=== PATIENT | male | born 1930 | race Caucasian/White ===

== ENCOUNTER 2016-09-02 18:48 | Inpatient (IN) | payer MEDICARE, BC, OTHER ==
--- NOTE | ~2016-09-02 | CO ---
Unit #: [id number] #: [id number] Patient: KELLI HADDAD [id number] [address] [place], [place] [address] [id number] MR#: [id number] NAME: KELLI HADDAD ROOM: [facility] Age: 85 Sex: M Admission Date: 09/02/2016 : 1930 Attending Physician: Merle Guaman M.D. Primary Care Physician: Neftali Pro M.D. Consultation Date: 09/04/2016 CONSULTATION REPORT REASON FOR CONSULTATION CHF. HISTORY OF PRESENT ILLNESS This is a patient from a half-way, who is unable to answer questions at this time. The majority of this information was obtained from chart review and nursing staff. This is an 85-year-old male sent from a half-way with altered mental status changes. He has a prior history of hypertension, hyperlipidemia, anemia, coronary artery disease, status post CABG x3, and mitral valve annuloplasty in 2001. He also has a history of ischemic cardiomyopathy with chronic systolic congestive heart failure with his last EF 15% to 20% in 2008 and valvular heart disease with [id number] tricuspid regurgitation, mitral regurgitation, and mild aortic stenosis with RVSP 40 to 50 mmHg per echo in 06/2008. In addition, he has a history of sick sinus syndrome, status post permanent pacemaker with Medtronic in 08/2003 and paroxysmal AFib, on chronic anticoagulation with Xarelto, and CVA in 2006. He presented to the ER with decreased responsiveness, elevated white blood cell count, temperature 101, and low blood pressure. In addition, his potassium was elevated at 5.7. He was transferred to the ICU on a Levophed drip. CT of the chest showed bilateral pleural effusions, right greater than left and bibasilar atelectasis. We were asked to see him to evaluate him for CHF. PAST MEDICAL HISTORY 1. Coronary artery disease, status post CABG x3 with STACK to diagonal, saphenous vein graft to LAD, and saphenous vein graft to posterolateral branch, and mitral valve annuloplasty in 09/2001. 2. Sick sinus syndrome, status post permanent pacemaker (Medtronic) in 08/2003. 3. Ischemic cardiomyopathy with chronic systolic congestive heart failure with EF 15% to 20% per 2009 echo. 4. Valvular heart disease with [id number] TR and mitral regurgitation, mild , and RVSP 40 to 50 per echo in 06/2008. 5. Paroxysmal AFib, on chronic anticoagulation with Xarelto. 6. 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 7. Hypertension. 8. Hyperlipidemia. 9. Anemia. 10. Reformed tobacco abuse. Unit #: [id number] #: [id number] Patient: KELLI HADDAD 11. Seizure disorder. 12. senior care resident. 13. Abnormal adenosine Cardiolite in 2008. PAST SURGICAL HISTORY 1. CABG x3 with mitral valve annuloplasty in 2001. 2. Permanent pacemaker with Medtronic in 08/2003. SOCIAL HISTORY The patient resides in a half-way. He is a reformed tobacco user. No alcohol or illicit drug use reported. FAMILY HISTORY Noncontributory. ALLERGIES No known drug allergies. HOME MEDICATIONS Aldactone 12.5 mg p.o. daily, aspirin 81 mg p.o. daily, potassium chloride 20 mEq p.o. daily, Lasix 20 mg p.o. daily, fluorometholone 1 drop to both eyes daily, Cortisporin ointment 15 g topical daily, Keppra 750 mg p.o. b.i.d., Flomax 0.4 mg p.o. at bedtime, Senexon-S tablet 2 tabs p.o. b.i.d., Coreg 3.125 mg p.o. b.i.d., Remeron 7.5 mg p.o. at bedtime, MiraLAX 17 g p.o. daily, Xarelto 15 mg p.o. every evening, ferrous sulfate 1 tab p.o. b.i.d., vitamin B12 1000 mcg p.o. daily, and probiotic 250 mg p.o. b.i.d. REVIEW OF SYSTEMS Unable to fully obtain because the patient is nonverbal. He does, however, shake his head yes or no when I ask questions regarding pain. He denies chest pain, tightness, or discomfort. In addition, he denies shortness of breath. PHYSICAL EXAMINATION VITAL SIGNS: Temperature 97.9, heart rate 72, respiratory rate 26, blood pressure 112/41, height 65 inches, and weight 59.5 kg. GENERAL: This is a frail, elderly, 85-year-old male resting in bed, in no acute respiratory distress. NEUROLOGIC: He opens his eyes briefly and falls back to sleep. He does follow commands with some right-sided weakness. NECK: Trachea is midline. No thyromegaly or lymphadenopathy. HEART: S1 and S2. Regular rate and rhythm. No murmurs, rubs, or clicks. LUNGS: Rales in bases. Nonlabored respirations. ABDOMEN: Soft, nontender, and nondistended. EXTREMITIES: Trace pedal edema. SKIN: Warm and dry. DIAGNOSTIC STUDIES LABORATORY RESULTS: Sodium 147, potassium 4.8, chloride 116, BUN 39, creatinine 1, and glucose 130. Hemoglobin 9.4, hematocrit 31, white blood cell count 14.4, and platelets 253. BNP 1457. Urine culture; negative, greater than 100,000 growing. Blood cultures have no growth after 24 hours. IMAGING STUDIES: Chest x-ray shows left lower lobe infiltrate versus atelectasis with discoid atelectasis in the right base, possibly pulmonary edema. CT of the chest shows moderately large right pleural effusion, Unit #: [id number] #: [id number] Patient: KELLI HADDAD small left pleural effusion, and extensive atelectasis in both bases. CARDIOVASCULAR STUDIES: EKG shows ventricular paced rhythm at 70 beats per minute. IMPRESSION 1. Acute respiratory failure, hypercarbic. 2. Sepsis. 3. Urinary tract infection. 4. Acute on chronic systolic congestive heart failure. 5. Coronary artery disease, status post coronary artery bypass grafting x3 and mitral valve annuloplasty in 2001. 6. History of paroxysmal atrial fibrillation, on chronic anticoagulation with Xarelto. 7. Sick sinus syndrome, status post permanent pacemaker. 8. History of cerebrovascular accident in 2006. 9. Anemia. 10. Hyperkalemia, improved. PLAN 1. Echocardiogram. 2. Strict I's and O's. 3. Daily weights. 4. Diurese, Lasix 20 mg IV b.i.d. 5. BMP and CBC in a.m. 6. No RAIMUNDO, ARB, or Aldactone due to elevated potassium. We will continue to follow BMP. 7. Continue Levophed drip and wean as tolerated. Restart beta-monse when BP improves. Thank you for asking us to this patient. We appreciate the consult. Dictated by... Mitzi High APRN for Nikhil Moore/irving TD: 09/05/2016 10:48 JOB #: [id number] CONSULTATION REPORT Page 1 of 1 X X CONSULTATION REPORT
--- NOTE | ~2016-09-02 | A ---
[facility] Nutrition Therapy DATE: 09/12/16 Patient: KELLI HADDAD Physician: DELFINA Address: [facility] Room/Bed: [address] [place] [address], Zip: [place] [address] Admit Date: 09/02/16 Date of : [birth year] Height: 5 5 Weight: 139 63.1 NUTRITIONAL ASSESSMENT: REASON: LOS NUTRITION ASSESSMENT 85 yo male admitted for sepsis, UTI, AMS PMH: Dysphagia, CVA, aphasic, CHF, CAD, CABG, s/p pacemaker placement, HLD, HTN, seizure disorder, Afib, anemia Anthropometrics: Ht: 5'11" Wt: 63.1 kg BMI: 19.4 IBW: 78.2 kg, 81% IBW Labs: Cl- 94 Meds: Furosemide, protonix, NaCl I/O & Bowel function: 980/651, last BM 09/11 Skin Integrity: Blanchable redness to coccyx Intact abrasion to right conrad hematoma bottom lip/ LFA Edema: none noted Estimated Nutrition Needs: Increased due to low body weight Diet: Mechanical soft diet with NTL Assessment: Chart reviewed, events noted. 85 yo male admitted for sepsis, UTI, AMS. Pt requires feeding assistance, and is ordered the above diet per LUMBER PULLER recommendations. RN reports that the pt consumed ~50% of his lunch today, and was NPO this morning for EGD. EGD revealed gastric erosions, hiatal hernia and esophageal ring. Pt will require video LUMBER PULLER evaluation per MD note. RN reports that the pt seems to like finger foods and sweeter items on tray such as pudding and vegetables. RD will order Ensure pudding supplement. Dx: Suboptimal nutritional intake RT dysphagia, advanced age AEB ~50% intake reported by RN, pt is 81% of his IBW. Intervention: 1. Continue diet per LUMBER PULLER 2. Ensure pudding TID Monitoring, Evaluation and Goals: 1. Oral intake; tolerate >50% of meals and supplements 2. Weight; prevent weight loss, promote gradual weight gain [facility] Nutrition Therapy DATE: 09/12/16 Patient: KELLI HADDAD Physician: DELFINA Address: [facility] Room/Bed: [address] [place] [address], Zip: [place] [address] Admit Date: 09/02/16 Date of : [birth year] Height: 5 5 Weight: 139 63.1 3. GI; promote regular GI function 4. Skin; prevent breakdown Recommendations: 1. Continue to advance diet per LUMBER PULLER recommendations. No further dietary restrictions recommended at this time. 2. Ensure pudding TID with meals for supplemental nutrition. 3. Appreciate staff encouraging and assiting with nutritional intake at each meal. Pt is at mild-moderate nutritional risk. RD will follow up per protocol. Respectfully, MAC KOHLER RD, LD [facility] cc: client file
--- NOTE | ~2016-09-02 | HP ---
Unit #: [id number] #: [id number] Patient: KELLI HADDAD [id number] [address] [address] [id number] I MR#: [id number] NAME: KELLI HADDAD. ROOM: 68266 Age: 85 Sex: M Admission Date: 09/02/2016 : 1930 Attending Physician: Merle Guaman M.D. Primary Care Physician: Neftali Pro M.D. HISTORY AND PHYSICAL CHIEF COMPLAINT Altered mental status and unresponsive. HISTORY OF PRESENT ILLNESS Mr. Haddad was brought from the [facility] for unresponsiveness. The patient was not able to provide any history. He is being evaluated in the emergency room, bed 6. I tried to call the patient's family as the patient got anxious, but no one is available at this time. The patient's temperature is 101. White blood cell count is elevated to 19. The patient seems to be in sepsis. PAST MEDICAL HISTORY From old medical records, 1. History of systolic congestive heart failure with ejection fraction of 15%-20%. 2. History of coronary artery disease, status post coronary artery bypass grafting. 3. History of pacemaker placement. 4. Atrial fibrillation. 5. Anticoagulation therapy with Xarelto. 6. History of CVA in the past. 7. Seizure disorder. 8. History of CVA in 2006. 9. half-way resident. PAST SURGICAL HISTORY 1. History of pacemaker placement. 2. History of coronary artery bypass grafting. SOCIAL HISTORY The patient lives in the [facility]. No history of smoking, alcohol or drug abuse at this time, but he is a former smoker. FAMILY HISTORY Noncontributory per medical records. ALLERGIES No known drug allergies. HOME MEDICATIONS Being compiled at this time. REVIEW OF SYSTEMS Not obtainable. Unit #: [id number] #: [id number] Patient: KELLI HADDAD PHYSICAL EXAMINATION GENERAL: The patient is being evaluated in bed 6 in the emergency room. VITALS: Temperature is 101.3, pulse 72, respiratory rate 18, blood pressure 121/45, oxygen saturation is 95%. HEENT: Head is normocephalic. The patient is unresponsive. CHEST: Decreased air entry bilaterally. Rales are present in the bases. HEART: S1 and S ABDOMEN: Soft. EXTREMITIES: Negative edema. Pulses are palpable. NEUROLOGIC: The patient is unresponsive. DIAGNOSTIC STUDIES LABORATORY: Available so far, white blood cell count 19.5, hemoglobin 10.8, hematocrit 34.7, platelets 272. AFB shows pH 7.26, pCO2 75.6, pO2 125, oxygen saturation 96.4% on 2 liters. The rest of the blood workup and investigations are still pending. ASSESSMENT The patient is being admitted to the ICU with diagnoses of 1. Toxic metabolic encephalopathy. 2. Sepsis. 3. Urinary tract infection. 4. Acute hypercarbic respiratory failure. 5. Possible pneumonia. 6. Seizure disorder. 7. History of congestive heart failure and coronary artery disease with ejection fraction of 15%-20%. PLAN The patient is being admitted to the ICU. BiPAP has been started. Workup including CMP, blood cultures, urine cultures and chest x-ray is being done. BMP was done. Lactic acid has been ordered. Dr. Encinas will be consulted. Antibiotic with Zosyn 3.375 g q.6 h. has been started. The patient will be given a dose of tobramycin and vancomycin times one. IV Keppra 50 mg q.12 h. has been started. The patient will be n.p.o. until further orders. Home medications will be reviewed. Please refer to chart for further orders. Please note the patient's code status is DNR. Dictated by Nikhil Jara TD: 09/03/2016 06:31 JOB #: [id number] Unit #: [id number] #: [id number] Patient: KELLI HADDAD HISTORY AND PHYSICAL Page 1 of 1 X Merle Guaman MD HISTORY AND PHYSICAL
--- NOTE | ~2016-09-02 | CO ---
Unit #: [id number] #: [id number] Patient: KELLI HADDAD [id number] [address] [place], [place] [address] [id number] I MR#: [id number] NAME: KELLI HADDAD. ROOM: [facility] Age: 85 Sex: M Admission Date: 09/02/2016 : 1930 Attending Physician: Merle Guaman M.D. Primary Care Physician: Neftali Pro M.D. CONSULTATION REPORT REASON FOR CONSULTATION Critical care management. CHIEF COMPLAINT Altered mental status, unresponsiveness. The patient presented to the emergency room with a complaint of unresponsiveness and was found to have a urinary tract infection and started on Levophed. I am seeing the patient at the bedside. Currently awake, alert, follows minimal commands. REVIEW OF SYSTEMS Unobtainable because patient's poor cognition. PAST MEDICAL HISTORY 1. Congestive heart failure. 2. Coronary artery disease. 3. Pacemaker placement. 4. Atrial fibrillation. 5. Stroke. 6. Seizure disorder. 7. History of CVA. 8. [facility] resident. PAST SURGICAL HISTORY 1. Pacemaker placement. 2. Coronary artery disease. SOCIAL HISTORY Nonsmoker. No alcohol, no drug abuse. PHYSICAL EXAMINATION VITAL SIGNS: Temperature 101, pulse 70, respirations 15, blood pressure 120/70. NEUROLOGICAL: Awake, follows minimal commands. CVS: S1+ S2. RESPIRATIONS: Bilateral air entry, bilateral mild rhonchi. GI: Nontender, soft. Bowel sounds positive. EXTREMITIES: No edema. SKIN: No rashes, no ulcers. LYMPHATIC: No lymphadenopathy. ASSESSMENT AND PLAN 1. Acute hypercapnic respiratory failure. Unit #: [id number] #: [id number] Patient: KELLI HADDAD 2. Acute exacerbation of congestive heart failure. 3. Shock. 4. Urinary tract infection. 5. Sepsis. 6. Congestive heart failure. Plan is to admit the patient. Continue pressors, IV antibiotics, bronchodilators. GI and DVT prophylaxis. The patient is a DNR. Discontinue BiPAP. Repeat blood gas. Please see orders for detailed plans. Thank you very much for this consultation. Prognosis is extremely poor. Dictated by... Nancy Encinas M.D. Fredy TD: 09/04/2016 06:46 JOB #: [id number] CONSULTATION REPORT Page 1 of 1 X Nancy Encinas MD CONSULTATION REPORT
--- NOTE | ~2016-09-02 | CO ---
Unit #: [id number] #: [id number] Patient: KELLI HADDAD [id number] [address] [place], [place] [address] [id number] I MR#: [id number] NAME: KELLI HADDAD. ROOM: [facility] Age: 85 Sex: M Admission Date: 09/02/2016 : 1930 Attending Physician: Mrele Guaman M.D. Primary Care Physician: Neftali Pro M.D. Consultation Date: 09/04/2016 CONSULTATION REPORT CHIEF COMPLAINT Split penis. HISTORY OF PRESENT ILLNESS The patient in the ICU, skilled nursing resident. We were consulted, because of initially catheter placement. 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 His long-term catheter use has bivalve the penis and with initial visit and evaluation, his catheter was removed. I gave orders to have a coude catheter placed, it was placed without difficulty. He is having urine leak around the catheter consistent with bladder spasms. The patient is aphasic. PAST MEDICAL HISTORY Congestive heart failure, coronary artery disease, pacemaker placement, atrial fibrillation, CVA in the past, seizure disorder, skilled nursing resident. He has had bypass surgery. SOCIAL HISTORY He lives in a skilled nursing. No history of smoking. FAMILY HISTORY Noncontributory per the records. ALLERGIES No known drug allergies. MEDICATIONS At the skilled nursing include Aldactone, aspirin, K-Dur, Lasix, Keppra, Flomax, Colace, Coreg, Remeron, MiraLax, Xarelto, iron, vitamin B12, and probiotic. PHYSICAL EXAMINATION VITAL SIGNS: He is afebrile. Vital signs are stable. GENERAL: He is alert, in no acute distress. ABDOMEN: Soft. No rebound. No guarding. : No palpable masses in the scrotum. Marin catheter in place. Urine is clear. He does have a traumatic hypospadias, but there is no active bleeding. DIAGNOSTIC STUDIES LABORATORY RESULTS: Creatinine 1.0. White count 14.4. Urinalysis; 3+ leukocytes, this is a clean-catch specimen, 3+ blood, 4+ bacteria likely contaminant from his normal indwelling catheter. The patient was voiding and incontinent of urine. Apparently, urine culture is pending. 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 Urine culture is pending. Can leave the catheter in place and change it as previous. I will order B and O suppositories for his bladder spasms. Thank you for the referral. Dictated by... Keith Raman M.D. KELLY/irving TD: 09/05/2016 05:40 JOB #: [id number] CONSULTATION REPORT Page 1 of 1 X Ketih Raman MD X CONSULTATION REPORT
--- NOTE | ~2016-09-02 | OR ---
Unit #: [id number] #: [id number] Patient: KELLI HADDAD [id number] [address] [address] [id number] I MR#: [id number] NAME: KELLI HADDAD ROOM: [facility] Date of Procedure: 09/12/2016 Admission Date: 09/02/2016 Surgeon: Mickey Rodríguez M.D. : 1930 Attending Physician: Merle Guaman M.D. Primary Care Physician: Neftali Pro M.D. OPERATIVE REPORT PROCEDURE PERFORMED Esophagogastroduodenoscopy with biopsy. INDICATIONS FOR PROCEDURE The patient with anemia of acute blood loss, also with dysphagia, undergoing evaluation with upper endoscopy. MEDICATIONS Monitored anesthesia. POSTOPERATIVE FINDINGS 1. Esophageal ring, nonobstructing acquired. 2. Hiatal hernia. 3. Diffuse gastritis. Multiple gastric erosions. No active bleeding. 4. Normal duodenum and distal duodenum. PLAN Continue PPI therapy. Watch H and H. DESCRIPTION OF PROCEDURE The patient was explained of the procedure, risks, and benefits along with risks and benefits of anesthesia. He was brought to the endoscopy room. Propofol anesthesia was given. Bite block was placed. The scope was passed down the mouth into the esophagus, stomach, duodenum, and distal duodenum. Findings as described. Biopsies taken. Gently, I pulled the scope out of the patient's mouth. He tolerated it well. Dictated by... Nikhil Cr/irving TD: 09/12/2016 13:21 JOB #: [id number] Unit #: [id number] #: [id number] Patient: KELLI HADDAD OPERATIVE REPORT Page 1 of 1 X Mickey Rodríguez MD X PROCEDURE OPERATIVE NOTE
--- NOTE | ~2016-09-02 | CR72 ---
[facility] A Service of [facility] RADIOLOGY TEXT RESULTS PATIENT: KELLI HADDAD LOCATION: [facility] [id number] : [birth year] UNIT #: [id number] AGE: [address]: Merle Guaman MD SEX: M ORDER DR: [id number] [facility] [address]. [place], [place] [address] [id number] I MR#: [id number] Acc #: [id number] NAME: KELLI HADDAD. : 1930 SEX: M STUDY DATE/TIME: 09/02/2016 19:23 UNIT: [facility] ROOM: 04951 STUDY DESCRIPTION: CR Chest Single View Portable Attending Physician: Merle Guaman M.D. Ordering Physician: Sebastian Turcois M.D. Primary Care Physician: Neftali Pro M.D. MEDICAL IMAGING REPORT This report is preliminary unless electronic signature is present EXAM Portable chest, 09/02/2016. HISTORY Shortness of breath beginning today. FINDINGS The heart is enlarged but stable compared with 09/29/2015, status post median sternotomy and valvular replacement. Cardiac pacemaker is unchanged. Infiltrate or atelectasis left lower lobe and discoid atelectasis right base. Interstitial infiltrates may reflect mild pulmonary edema. No pneumothorax. Dictated by... Arsalan Bryant M.D. THIS IS AN ELECTRONICALLY VERIFIED REPORT Arsalan Bryant M.D. at 09/03/2016 2:15 PM ROSETTE/bela TD: 09/03/2016 03:34 JOB #: [id number] MEDICAL IMAGING REPORT Page 1 of 1 COPY
--- NOTE | ~2016-09-02 | DS ---
Unit #: [id number] #: [id number] Patient: KELLI HADDAD [id number] [address] [place], [place] [address] [id number] I MR#: [id number] NAME: KELLI HADDAD ROOM: 326 Age: 85 Sex: M Admission Date: 09/02/2016 : 1930 Discharge Date: 09/12/2016 Attending Physician: Merle Guaman M.D. Primary Care Physician: Neftali Pro M.D. DISCHARGE SUMMARY FINAL DIAGNOSES 1. Acute hypoxic respiratory failure, which is improved. 2. Sepsis, resolved. 3. Urinary tract infection. Please note the patient just completed a course of antibiotics. 4. Coronary artery disease. 5. Paroxysmal atrial fibrillation. 6. Anemia, status post EGD, which shows esophageal ring, nonobstructive, which is acquired. Hiatal hernia, gastritis, gastric erosion. Biopsy has been done. Normal duodenum. 7. Altered mental status on admission, which is resolved. 8. Systolic congestive heart failure, with ejection fraction of 15%-20%. 9. History of coronary artery disease, status post coronary artery bypass grafting. 10. History of pacemaker placement. 11. History of CVA in the past. 12. Seizure disorder. 13. halfway resident. DISCHARGE MEDICATIONS 1. Vitamin B12 1000 p.o. daily. 2. Potassium 20 mEq daily. 3. Protonix 40 mg daily. 4. Aspirin 81 mg daily. 5. [place]-Time 1 tablet b.i.d. 6. Probiotic 250 mg b.i.d. 7. Lasix 20 mg daily. 8. MiraLAX 17 g daily. 9. Flomax 0.4 mg at bedtime. 10. Tylenol q.4 h. p.r.n. 11. Xarelto 15 mg daily. 12. Keppra 750 mg b.i.d. 13. Remeron 7.5 mg at nighttime. 14. Coreg 3.125 mg b.i.d. CONSULTANTS Dr. Nancy Encinas from pulmonary services. Dr. Keith Raman from renal services. Dr. Jones from cardiology services. DIAGNOSTIC DATA LABORATORY: On discharge, sodium 137, potassium 4.8, chloride 94, BUN 19, creatinine 1.1, calcium 8.5. PT/INR 12.5 and 1.2. CBC shows white blood cell count 11.9, hemoglobin 9.2, hematocrit 29.2, platelet count 147. Unit #: [id number] #: [id number] Patient: KELLI HADDAD Hemoccult in stool is negative. Vitamin B12 is 1,225, ferritin 454, TSH 1.71. Blood cultures are negative. BNP on admission was more than 1000. IMAGING: There were multiple chest x-rays done during hospitalization and CT scan of the chest was done on 09/03/2016, that showed moderately large right pleural effusion and small left pleural effusion. Extensive atelectasis in the posterior right lower lobe and moderate atelectasis in the medial left lower lobe. There are additional patchy multifocal interstitial infiltrates. There are stable mild mediastinal adenopathy, likely reactive or inflammatory and likely benign given its long-term stability. HOSPITAL COURSE Mr. Haddad is an 85-year-old male who was admitted to the hospital on 09/02/2016 with altered mental status and unresponsiveness. The patient was admitted to the telemetry unit with toxic metabolic encephalopathy, sepsis and urinary tract infection and acute respiratory failure. Dr. Nancy Encinas was consulted. The patient was diagnosed with congestive heart failure, acute on chronic systolic congestive heart failure. The patient was treated with IV diuretics. Dr. Jones was consulted. The patient is doing very well at this time and is able to tolerate diet. He is able to communicate. The patient will be [facility] to the [facility] in stable condition. The patient also was found to have urinary tract infection. Urine culture was positive for more than 100,000 mixed growth. The patient had some anemia. Dr. Rodríguez was consulted. The patient had EGD done. Findings are as above. We do need to follow up on pathology report. Please note, per Dr. Rodríguez the patient is not a good candidate for colonoscopy. PHYSICAL EXAMINATION VITALS: On discharge, blood pressure 101/46, respiratory rate 18, pulse 75, temperature 98.7, oxygen saturation 98%. CHEST: Decreased at the bases. HEART: S1 and S2 positive. Regular. ABDOMEN: Soft. EXTREMITIES: Negative edema. DISCHARGE INSTRUCTIONS 1. The patient is being discharged to the rehab facility in stable condition. 2. Medication as per medication reconciliation. 3. Dr. Pro to follow the patient at the [facility]. 4. CBC and BMP to be done in one week. 5. Physical therapy and occupational therapy at the [facility]. 6. Follow up on pathology results from gastric mucosa. Dictated by.Nikhil Farmer TD: 09/12/2016 14:33 Unit #: [id number] #: [id number] Patient: KELLI HADDAD JOB #: [id number] DISCHARGE SUMMARY Page 1 of 1 X Merle Guaman MD X DISCHARGE SUMMARY
--- NOTE | ~2016-09-02 | CR71 ---
[facility] A Service of [facility] & [facility] RADIOLOGY TEXT RESULTS PATIENT: KELLI HADDAD LOCATION: [place] [address] : 31 UNIT #: [id number] AGE: [address]: Merle Guaman MD SEX: M ORDER DR: [id number] [facility] [address] [facility]. [place], [place] [address] [id number] I MR#: [id number] Acc #: [id number] NAME: KELLI HADDAD. : 1930 SEX: M STUDY DATE/TIME: 09/05/2016 5:47 UNIT: [facility] ROOM: [facility] STUDY DESCRIPTION: CR Chest Single View Attending Physician: Merle Guaman M.D. Ordering Physician: Nancy Encinas M.D. Primary Care Physician: Neftali Pro M.D. MEDICAL IMAGING REPORT This report is preliminary unless electronic signature is present EXAM Portable chest HISTORY CHF, sepsis, UTI x3 days, respiratory failure. COMPARISON 09/02/2016 FINDINGS Portable view of the chest demonstrates interval placement of a right neck-approach central line near the cavoatrial junction. Pacemaker noted. Patient is post median sternotomy and valve replacement. Increasing opacity over both lungs right greater than left may represent worsening interstitial and alveolar edema may reflect underlying CHF. Probable small right pleural effusion. Stable cardiomegaly. No pneumothorax. Dictated by... Master Christianson M.D. THIS IS AN ELECTRONICALLY VERIFIED REPORT Master Christianson M.D. at 09/06/2016 12:28 PM TIANNA/khloe TD: 09/05/2016 21:33 JOB #: [id number] MEDICAL IMAGING REPORT Page 1 of 1 COPY
--- NOTE | ~2016-09-02 | CT57 ---
[facility] A Service of [facility] & [facility] RADIOLOGY TEXT RESULTS PATIENT: KELLI HADDAD LOCATION: [address] : [birth year] UNIT #: [id number] AGE: [address]: Merle Guaman MD SEX: M ORDER DR: [id number] [facility] [address] [facility]. [place], [place] [address] [id number] I MR#: [id number] Acc #: [id number] NAME: KELLI HADDAD. : 1930 SEX: M STUDY DATE/TIME: 09/03/2016 16:53 UNIT: [facility] ROOM: [facility] STUDY DESCRIPTION: CT Chest Wo Cont Attending Physician: Merle Guaman M.D. Ordering Physician: Nancy Encinas M.D. Primary Care Physician: Neftali Pro M.D. MEDICAL IMAGING REPORT This report is preliminary unless electronic signature is present EXAM CT chest without contrast. HISTORY Fever and shortness of air since yesterday. TECHNIQUE This CT exam was performed with one or more of the following radiation dose reduction techniques: automatic exposure control, adjustment of mA and/or kV according to patient size, and iterative reconstruction. FINDINGS CT chest without contrast demonstrates a moderate-sized right pleural effusion and small left pleural effusion. Moderately dense atelectasis or infiltrate in the posterior right lower lobe and in the medial left lower lobe. Additional subpleural atelectasis in the posterior upper lobes. Additional patchy interstitial infiltrates in the mid and upper lungs, could be secondary to edema or interstitial pneumonia.. Mild right paratracheal adenopathy measuring 1.3 cm, aortopulmonic window adenopathy measuring 1.2 cm, and subcarinal adenopathy measuring 1.2 cm. These are similar findings to mediastinal nodes on CT 07/24/2006, and could be reactive or inflammatory. Aberrant right subclavian artery is incidentally noted. IMPRESSION 1. Moderately large right pleural effusion and small left pleural effusion. 2. Extensive atelectasis in the posterior right lower lobe and moderate atelectasis in the medial left lower lobe. There are additional patchy multifocal interstitial infiltrates in the mid and upper lungs which could be due to pneumonitis or edema. 3. Stable mild mediastinal adenopathy, likely reactive or inflammatory, and likely benign given its long-term stability. [facility]. [facility] A Service of [facility] & [facility] RADIOLOGY TEXT RESULTS PATIENT: KELLI HADDAD LOCATION: [address] : 31 UNIT #: [id number] AGE: [address]: Merle Guaman MD SEX: M ORDER DR: 4. Incidental aberrant right subclavian artery. Dictated by... Jay Carcamo M.D. THIS IS AN ELECTRONICALLY VERIFIED REPORT Jay Carcamo M.D. at 09/04/2016 5:38 PM CESAR/bela TD: 09/04/2016 09:24 JOB #: [id number] MEDICAL IMAGING REPORT Page 1 of 1 COPY
--- NOTE | ~2016-09-02 | EKG ---
PATIENT: KELLI HADDAD UNIT #: [id number] Ventricular Rate: 71 BPM Atrial Rate: 71 BPM P-R Interval: 196 ms QRS Duration: 92 ms Q-T Interval: 390 ms QTC Calculation(Bezet): 423 ms P [place]: 37 degrees Calculated R [place]: -4 degrees Calculated T [place]: -72 degrees Diagnosis Line: Sinus rhythm with sinus arrhythmia with frequent Diagnosis Line: ventricular-paced complexes Diagnosis Line: Low voltage QRS Diagnosis Line: ST and T wave abnormality, consider inferior Diagnosis Line: ischemia Diagnosis Line: ST and T wave abnormality, consider anterolateral Diagnosis Line: ischemia Diagnosis Line: Abnormal ECG Diagnosis Line: When compared with ECG of 29-SEP-2015 02:06, Diagnosis Line: No significant change was found Diagnosis Line: Confirmed by TORITO DESOUZA MD ([id number]) on Diagnosis Line: 09/04/2016 11:06:22 AM INTERPRETING MD: LYLY WHITE
--- NOTE | ~2016-09-02 | CR72 ---
[facility] A Service of [facility] & [facility] RADIOLOGY TEXT RESULTS PATIENT: KELLI HADDAD LOCATION: [facility] 326- : 31 UNIT #: [id number] AGE: [address]: Merle Guaman MD SEX: M ORDER DR: [id number] [facility] [address] [facility] [address] [place], [place] [address] [id number] I MR#: [id number] Acc #: [id number] NAME: KELLI HADDAD : 1930 SEX: M STUDY DATE/TIME: 09/08/2016 11:32 UNIT: [address] ROOM: [facility] STUDY DESCRIPTION: CR Chest Single View Portable Attending Physician: Merle Guaman M.D. Ordering Physician: Portia Ying M.D. Primary Care Physician: Neftali Pro M.D. MEDICAL IMAGING REPORT This report is preliminary unless electronic signature is present EXAM Chest portable, 09/08/2016, 1132 hours. CLINICAL HISTORY 85-year-old man with history of shortness of air and heart failure since 09/02/2016. Followup edema. COMPARISON 09/05/2016 FINDINGS Portable upright chest demonstrates median sternotomy change with valve ring present. Stable pacer device. Heart size at the upper limits of normal with stable tortuous atherosclerotic aorta. Interval removal of right IJ catheter. There is no pneumothorax. There is pulmonary venous distension and bilateral interstitial change which is similar to prior exam. There is blunting of the right costophrenic sulcus consistent with small effusion felt likely unchanged. IMPRESSION 1. Interval removal of right IJ catheter with no pneumothorax. 2. Median sternotomy change with stable pacer device and heart size at the upper limits of normal. 3. Stable right greater than left parenchymal changes suggesting edema. There is blunting of the right costophrenic sulcus consistent with small effusion which is likely unchanged. Dictated by... Claire Nye M.D. THIS IS AN ELECTRONICALLY VERIFIED REPORT Claire Nye M.D. at 09/08/2016 5:18 PM [facility] A Service of [facility] & [facility] RADIOLOGY TEXT RESULTS PATIENT: KELLI HADDAD LOCATION: [place] [address] : 31 UNIT #: [id number] AGE: [address]: Merle Guaman MD SEX: M ORDER DR: Vasile TD: 09/08/2016 15:12 JOB #: [id number] MEDICAL IMAGING REPORT Page 1 of 1 COPY
--- NOTE | ~2016-09-02 | OR ---
Unit #: [id number] #: [id number] Patient: KELLI HADDAD [id number] [address] [address] [id number] I MR#: [id number] NAME: KELLI HADDAD ROOM: [facility] Date of Procedure: Admission Date: 09/02/2016 Surgeon: Nancy Encinas M.D. : 1930 Attending Physician: Merle Guaman M.D. Primary Care Physician: Neftali Pro M.D. PROCEDURE OPERATIVE NOTE PROCEDURE Right internal jugular intravenous catheter placement. INDICATION Shock. DETAILS OF THE PROCEDURE Under all aseptic measures, the right side of the neck was prepped with ChloraPrep and, with all sterile technique with ultrasound guidance, a triple lumen central venous catheter was inserted in the right internal jugular vein. The guidewire was then removed in toto. All three ports flushed and working nice. Secured with suture in place. No complications happened. Modified Seldinger technique was applied. The patient tolerated the procedure very well. Post procedure chest x-ray was ordered. Dictated by... Nikhil Busch/gia TD: 09/04/2016 06:55 JOB #: [id number] PROCEDURE OPERATIVE NOTE Page 1 of 1 X Nancy Encinas MD X PROCEDURE OPERATIVE NOTE
[~2016-09-02 18:48] MED LIST: ALDACTONE PO; ASPIRIN PO; ASPIRIN81 M2 PO; B-121000 MC1 PO; COLACE PO; COMBIVENT U/D3 M3 INH; COREG PO; COREG3.125 MG PO; COUMADIN PO; ENEMEEZ283 MG/EN1 PR; FAST RELIEF LAX10 MG PR; FERRO-TIME325 MG PO; FERROUS SULFATE PO; FLOMAX0.4 M1 PO; FML LIQUIFILM OU; HYDROCODONE-APA1 T33 PO; IMDUR PO; K-DUR20 ME1 PO; KCL PO; KEPPRA750 MG PO; LANOXIN PO; LASIX PO; LASIX20 MG PO; LIPITOR PO; LISINOPRIL PO; LORTAB 10/500 T1 TAB PO; LORTAB 7.5-5001 TAB PO; MILK OF MAGNESIA PO; MIRALAX17 GM PO; MIRALAX255 GM PO; MULTI-VITAMIN1 EAC1 PO; MULTIVITAMINS W1 TAB PO; NITROGYLCERIN SUBLINGUAL; NITROSTAT0.4 MG SL; OS-CAL 500500 MG PO; PROTONIX PO; REMEDY CALAZIM113 GM TOP; REMERON PO; SENEXON-S TABL1 EACH PO; TOPROL XL PO; TYLENOL325 M1 PO; UROXATRAL10 MG PO; VICODIN 5/500 T1 TAB PO; VITAMIN C500 M1 PO; XARELTO15 MG PO; XARELTO20 MG PO; ZOCOR PO
[2016-09-02 19:22] LABS: ARTERIAL BLD GAS O2 SATURATION 96.4 % (90.0-100.0); ARTERIAL BLOOD GAS HCO3 34.2 mmol/L; ARTERIAL BLOOD GAS MET HB 1.1 %sat (0.0-2.0); ARTERIAL BLOOD GAS pH 7.264 (7.350-7.450)
[2016-09-02 19:23] LABS: ARTERIAL BLOOD GAS PCO2 75.6 mmHg (35.0-45.0)
[2016-09-02 19:24] LABS: ARTERIAL BLOOD GAS ALLEN TEST NORMAL; ARTERIAL BLOOD GAS ART SITE RIGHT RADIAL; ARTERIAL BLOOD GAS DELIVERY NASAL CANNULA; ARTERIAL DRAW? YES
[2016-09-02 19:37] LABS: BASOPHIL% 0.2 % (0-2.5); HEMATOCRIT 34.7 % (38.0-50.0); HEMOGLOBIN 10.8 gm/dL (13.0-16.0); LYMPHOCYTE# 0.6 X10e3 (1.0-3.5); MEAN CELL VOLUME 95.5 FL (83-96); MEAN CORPUSCULAR HEMOGLOBIN 29.7 PG (28-34); MEAN CORPUSCULAR HGB CONC 31.1 g/dL (30-36); MEAN PLATELET VOLUME 8.9 FL (6.5-11.5); MONOCYTE# 1.4 X10e3 (0-1.0); MONOCYTE% 7.2 % (3.0-12.0); NEUTROPHIL# 17.5 X10e3 (1.5-7.1); NEUTROPHIL% 89.6 % (40-75); PLATELET COUNT 272 X10e3 (140-420); RED BLOOD COUNT 3.64 X10e (3.90-5.60); RED CELL DISTRIBUTION WIDTH 14.6 % (11.0-15.5); WHITE BLOOD COUNT 19.5 X10e3 (4.0-10.5)
[2016-09-02 19:38] LABS: DIFF IND YES
[2016-09-02 19:49] LABS: INR 1.2; PARTIAL THROMBOPLASTIN TIME 26.4 SECONDS (23.5-31.3)
[2016-09-02 20:03] LABS: POC - CKMB <1.0 ng/mL (0.0-7.9); POC - TROPONIN <0.05 ng/mL (<=0.05)
[2016-09-02 20:04] LABS: ALBUMIN SERUM 2.7 g/dL (3.5-5.0); ALKALINE PHOSPHATASE 50 U/L (32-92); ALT (SGPT) 11 U/L (10-40); AST (SGOT) 17 U/L (10-42); BILIRUBIN,TOTAL 0.4 mg/dL (0.2-2.0); BLOOD UREA NITROGEN 47 mg/dL (9-23); BUN/CREATININE RATIO 39.16; CALCIUM SERUM 9.1 mg/dL (8.4-10.2); CARBON DIOXIDE 33 mmol/L (22-31); CHLORIDE 110 mmol/L (100-111); CREATININE SERUM 1.2 mg/dL (0.6-1.4); GLOM FILT RATE Estimated 55.2 mL/min (>60); GLUCOSE FASTING 162 mg/dL (70-110); MAGNESIUM 2.5 mg/dL (1.6-3.0); PHOSPHOROUS 3.6 mg/dL (2.5-4.6); PROTEIN TOTAL SERUM 7.6 g/dL (6.0-8.3); SODIUM 145 mmol/L (135-145)
[2016-09-02 20:05] LABS: BILIRUBIN, DIRECT <0.1 mg/dL (0.0-0.2); BILIRUBIN,INDIRECT 0.3 mg/dL (0.0-0.9); POTASSIUM 5.7 mmol/L (3.5-5.1)
[2016-09-02 20:12] LABS: PLATELET ESTIMATE NORMAL (NORMAL)
[2016-09-02 20:13] LABS: ANISOCYTOSIS SL; POIKILOCYTOSIS SL
[2016-09-02 20:34] LABS: ARTERIAL BLD GAS O2 SATURATION 95.3 % (90.0-100.0); ARTERIAL BLOOD GAS CARBOXY HB 0.8 %sat (0.0-9.0); ARTERIAL BLOOD GAS HCO3 30.4 mmol/L; ARTERIAL BLOOD GAS MET HB 1.1 %sat (0.0-2.0); ARTERIAL BLOOD GAS pH 7.224 (7.350-7.450)
[2016-09-02 20:37] LABS: ARTERIAL BLOOD GAS ART SITE RIGHT BRACHIAL; ARTERIAL BLOOD GAS PCO2 73.6 mmHg (35.0-45.0); ARTERIAL DRAW? YES
[2016-09-02 20:46] LABS: URINE SOURCE CLEAN CATCH
[2016-09-02 20:50] LABS: URINE APPEARANCE TURBID; URINE BILIRUBIN NEG (NEG); URINE BLOOD 3+ (NEG); URINE COLOR YELLOW; URINE GLUCOSE NEG (NEG); URINE KETONE NEG (NEG); URINE LEUKOCYTE ESTERASE 3+ (NEG); URINE NITRATE NEG (NEG); URINE PH 6.5 (5-8); URINE PROTEIN 1+ (NEG); URINE SPECIFIC GRAVITY 1.017 (1.003-1.035)
[2016-09-02 20:52] LABS: URBCS1 AUWI 100-200 /[HPF] (0-2); URINE BACTERIA AUWI 4+ (NEGATIVE); URINE SQUAMOUS EPITHELIAL CELL NONE SEEN /[HPF]; UWBCS1 AUWI INNUM (0-5)
[2016-09-02 21:53] LABS: ARTERIAL BLD GAS O2 SATURATION 96.5 % (90.0-100.0); ARTERIAL BLOOD GAS CARBOXY HB 0.8 %sat (0.0-9.0); ARTERIAL BLOOD GAS HCO3 28.8 mmol/L; ARTERIAL BLOOD GAS MET HB 0.9 %sat (0.0-2.0)
[2016-09-02 21:55] LABS: ARTERIAL BLOOD GAS ART SITE RIGHT BRACHIAL; ARTERIAL BLOOD GAS DELIVERY BIPAP 18/4; ARTERIAL BLOOD GAS PCO2 75.3 mmHg (35.0-45.0); ARTERIAL BLOOD GAS pH 7.191 (7.350-7.450); ARTERIAL DRAW? YES
[2016-09-03] MEDS ORDERED: PROBIOTIC250 MG PO (03:36)
[2016-09-03] MEDS ORDERED: CORTISPORIN OIN15 GM TOP (03:40)
[2016-09-03 16:27] LABS: ARTERIAL BLD GAS O2 SATURATION 97.2 % (90.0-100.0); ARTERIAL BLOOD GAS CARBOXY HB 0.7 %sat (0.0-9.0); ARTERIAL BLOOD GAS HCO3 29.1 mmol/L; ARTERIAL BLOOD GAS MET HB 0.9 %sat (0.0-2.0); ARTERIAL BLOOD GAS pH 7.252 (7.350-7.450)
[2016-09-03 16:28] LABS: ARTERIAL BLOOD GAS ALLEN TEST NORMAL; ARTERIAL BLOOD GAS ART SITE LEFT RADIAL; ARTERIAL BLOOD GAS DELIVERY VENTURI MASK; ARTERIAL BLOOD GAS PCO2 66.2 mmHg (35.0-45.0); ARTERIAL DRAW? YES
[2016-09-03 16:37] LABS: HEMATOCRIT 34.3 % (38.0-50.0); HEMOGLOBIN 10.6 gm/dL (13.0-16.0); MEAN CELL VOLUME 97.1 FL (83-96); MEAN CORPUSCULAR HEMOGLOBIN 29.9 PG (28-34); MEAN CORPUSCULAR HGB CONC 30.8 g/dL (30-36); RED BLOOD COUNT 3.53 X10e (3.90-5.60); RED CELL DISTRIBUTION WIDTH 14.8 % (11.0-15.5); WHITE BLOOD COUNT 12.1 X10e3 (4.0-10.5)
[2016-09-03 17:04] LABS: CALCIUM SERUM 8.9 mg/dL (8.4-10.2); GLOM FILT RATE Estimated 68.8 mL/min (>60)
[2016-09-03 17:06] LABS: POTASSIUM 5.4 mmol/L (3.5-5.1)
[2016-09-04 04:47] LABS: ARTERIAL BLD GAS O2 SATURATION 97.6 % (90.0-100.0); ARTERIAL BLOOD GAS CARBOXY HB 0.7 %sat (0.0-9.0); ARTERIAL BLOOD GAS HCO3 28.2 mmol/L; ARTERIAL BLOOD GAS MET HB 1.1 %sat (0.0-2.0); ARTERIAL BLOOD GAS pH 7.275 (7.350-7.450)
[2016-09-04 04:50] LABS: ARTERIAL BLOOD GAS ALLEN TEST NORMAL; ARTERIAL BLOOD GAS ART SITE RIGHT RADIAL; ARTERIAL BLOOD GAS PCO2 60.6 mmHg (35.0-45.0); ARTERIAL DRAW? YES
[2016-09-04 04:51] LABS: ARTERIAL BLOOD GAS DELIVERY VENTURI MASK
[2016-09-04 06:03] LABS: HEMOGLOBIN 9.4 gm/dL (13.0-16.0); MEAN CELL VOLUME 97.5 FL (83-96); MEAN CORPUSCULAR HEMOGLOBIN 29.6 PG (28-34); MEAN CORPUSCULAR HGB CONC 30.4 g/dL (30-36); RED BLOOD COUNT 3.18 X10e (3.90-5.60); RED CELL DISTRIBUTION WIDTH 14.9 % (11.0-15.5); WHITE BLOOD COUNT 14.4 X10e3 (4.0-10.5)
[2016-09-04 06:30] LABS: ALBUMIN SERUM 2.4 g/dL (3.5-5.0); BILIRUBIN,TOTAL 0.6 mg/dL (0.2-2.0); CALCIUM SERUM 8.7 mg/dL (8.4-10.2); GLOM FILT RATE Estimated 68.8 mL/min (>60); POTASSIUM 4.8 mmol/L (3.5-5.1); PROTEIN TOTAL SERUM 6.5 g/dL (6.0-8.3)
[2016-09-05 04:07] LABS: BASOPHIL% 0.1 % (0-2.5); EOSINOPHIL% 0.1 % (0.0-7.0); HEMATOCRIT 29.3 % (38.0-50.0); HEMOGLOBIN 9.1 gm/dL (13.0-16.0); LYMPHOCYTE# 0.8 X10e3 (1.0-3.5); LYMPHOCYTE% 6.4 % (17.0-45.0); MEAN CELL VOLUME 96.4 FL (83-96); MEAN CORPUSCULAR HEMOGLOBIN 29.9 PG (28-34); MEAN PLATELET VOLUME 9.2 FL (6.5-11.5); MONOCYTE# 1.1 X10e3 (0-1.0); MONOCYTE% 9.3 % (3.0-12.0); NEUTROPHIL# 10.1 X10e3 (1.5-7.1); NEUTROPHIL% 84.1 % (40-75); PLATELET COUNT 206 X10e3 (140-420); RED BLOOD COUNT 3.04 X10e (3.90-5.60); RED CELL DISTRIBUTION WIDTH 14.4 % (11.0-15.5)
[2016-09-05 04:08] LABS: DIFF IND NO
[2016-09-05 04:21] LABS: ARTERIAL BLD GAS O2 SATURATION 96.4 % (90.0-100.0); ARTERIAL BLOOD GAS CARBOXY HB 0.9 %sat (0.0-9.0); ARTERIAL BLOOD GAS HCO3 33.7 mmol/L; ARTERIAL BLOOD GAS MET HB 1.3 %sat (0.0-2.0); ARTERIAL BLOOD GAS pH 7.297 (7.350-7.450)
[2016-09-05 04:23] LABS: ARTERIAL BLOOD GAS ALLEN TEST NORMAL; ARTERIAL BLOOD GAS ART SITE RIGHT RADIAL; ARTERIAL BLOOD GAS DELIVERY NASAL CANNULA; ARTERIAL DRAW? YES
[2016-09-05 04:31] LABS: ALBUMIN SERUM 2.5 g/dL (3.5-5.0); BILIRUBIN,TOTAL 0.4 mg/dL (0.2-2.0); BUN/CREATININE RATIO 38.88; CALCIUM SERUM 8.9 mg/dL (8.4-10.2); CREATININE SERUM 0.9 mg/dL (0.6-1.4); GLOM FILT RATE Estimated 78.2 mL/min (>60); POTASSIUM 3.6 mmol/L (3.5-5.1); PROTEIN TOTAL SERUM 6.6 g/dL (6.0-8.3)
[2016-09-06 04:02] LABS: ARTERIAL BLD GAS O2 SATURATION 95.5 % (90.0-100.0); ARTERIAL BLOOD GAS CARBOXY HB 1.1 %sat (0.0-9.0); ARTERIAL BLOOD GAS MET HB 0.9 %sat (0.0-2.0); ARTERIAL BLOOD GAS pH 7.417 (7.350-7.450)
[2016-09-06 04:05] LABS: ARTERIAL BLOOD GAS ALLEN TEST NORMAL; ARTERIAL BLOOD GAS PCO2 57.4 mmHg (35.0-45.0); ARTERIAL DRAW? YES
[2016-09-06 04:06] LABS: ARTERIAL BLOOD GAS ART SITE LEFT RADIAL; ARTERIAL BLOOD GAS DELIVERY NASAL CANNULA
[2016-09-06 07:00] LABS: ALBUMIN SERUM 2.3 g/dL (3.5-5.0); BILIRUBIN,TOTAL 1.1 mg/dL (0.2-2.0); BUN/CREATININE RATIO 31.11; CALCIUM SERUM 8.7 mg/dL (8.4-10.2); CREATININE SERUM 0.9 mg/dL (0.6-1.4); GLOM FILT RATE Estimated 78.2 mL/min (>60); POTASSIUM 3.4 mmol/L (3.5-5.1)
[2016-09-07 05:37] LABS: BASOPHIL% 0.1 % (0-2.5); EOSINOPHIL% 0.4 % (0.0-7.0); HEMATOCRIT 28.1 % (38.0-50.0); HEMOGLOBIN 9.2 gm/dL (13.0-16.0); LYMPHOCYTE# 0.5 X10e3 (1.0-3.5); LYMPHOCYTE% 6.7 % (17.0-45.0); MEAN CELL VOLUME 92.5 FL (83-96); MEAN CORPUSCULAR HEMOGLOBIN 30.3 PG (28-34); MEAN CORPUSCULAR HGB CONC 32.8 g/dL (30-36); MEAN PLATELET VOLUME 8.9 FL (6.5-11.5); MONOCYTE# 0.8 X10e3 (0-1.0); MONOCYTE% 10.4 % (3.0-12.0); NEUTROPHIL# 6.7 X10e3 (1.5-7.1); NEUTROPHIL% 82.4 % (40-75); PLATELET COUNT 154 X10e3 (140-420); RED BLOOD COUNT 3.04 X10e (3.90-5.60); WHITE BLOOD COUNT 8.1 X10e3 (4.0-10.5)
[2016-09-07 05:57] LABS: DIFF IND NO
[2016-09-07 06:21] LABS: BUN/CREATININE RATIO 27.77; CALCIUM SERUM 8.3 mg/dL (8.4-10.2); CREATININE SERUM 0.9 mg/dL (0.6-1.4); GLOM FILT RATE Estimated 78.2 mL/min (>60); POTASSIUM 3.1 mmol/L (3.5-5.1)
[2016-09-08 06:45] LABS: BASOPHIL% 0.2 % (0-2.5); EOSINOPHIL# 0.1 X10e3 (0-0.7); EOSINOPHIL% 0.8 % (0.0-7.0); HEMATOCRIT 27.1 % (38.0-50.0); HEMOGLOBIN 8.6 gm/dL (13.0-16.0); LYMPHOCYTE# 0.9 X10e3 (1.0-3.5); LYMPHOCYTE% 11.1 % (17.0-45.0); MEAN CELL VOLUME 93.7 FL (83-96); MEAN CORPUSCULAR HEMOGLOBIN 29.9 PG (28-34); MEAN CORPUSCULAR HGB CONC 31.9 g/dL (30-36); MEAN PLATELET VOLUME 9.3 FL (6.5-11.5); MONOCYTE# 0.7 X10e3 (0-1.0); MONOCYTE% 9.3 % (3.0-12.0); NEUTROPHIL% 78.6 % (40-75); PLATELET COUNT 138 X10e3 (140-420); RED BLOOD COUNT 2.89 X10e (3.90-5.60); RED CELL DISTRIBUTION WIDTH 14.7 % (11.0-15.5); WHITE BLOOD COUNT 7.7 X10e3 (4.0-10.5)
[2016-09-08 06:47] LABS: DIFF IND NO
[2016-09-08 07:11] LABS: BUN/CREATININE RATIO 26.66; CALCIUM SERUM 8.6 mg/dL (8.4-10.2); CREATININE SERUM 0.9 mg/dL (0.6-1.4); GLOM FILT RATE Estimated 78.2 mL/min (>60); MAGNESIUM 1.7 mg/dL (1.6-3.0); POTASSIUM 3.2 mmol/L (3.5-5.1)
[2016-09-09 05:36] LABS: HEMATOCRIT 26.6 % (38.0-50.0); HEMOGLOBIN 8.6 gm/dL (13.0-16.0); MEAN CORPUSCULAR HGB CONC 32.2 g/dL (30-36); MEAN PLATELET VOLUME 9.6 FL (6.5-11.5); RED BLOOD COUNT 2.86 X10e (3.90-5.60); RED CELL DISTRIBUTION WIDTH 14.4 % (11.0-15.5)
[2016-09-09 06:10] LABS: BUN/CREATININE RATIO 27.14; CALCIUM SERUM 8.5 mg/dL (8.4-10.2); CREATININE SERUM 0.7 mg/dL (0.6-1.4); GLOM FILT RATE Estimated 86.7 mL/min (>60); MAGNESIUM 1.7 mg/dL (1.6-3.0); POTASSIUM 3.5 mmol/L (3.5-5.1)
[2016-09-10 06:39] LABS: BUN/CREATININE RATIO 22.22; CALCIUM SERUM 8.5 mg/dL (8.4-10.2); CREATININE SERUM 0.9 mg/dL (0.6-1.4); GLOM FILT RATE Estimated 78.2 mL/min (>60); POTASSIUM 3.5 mmol/L (3.5-5.1)
[2016-09-10 06:40] LABS: HEMOGLOBIN 7.4 gm/dL (13.0-16.0); MEAN CELL VOLUME 93.3 FL (83-96); MEAN CORPUSCULAR HEMOGLOBIN 29.9 PG (28-34); MEAN CORPUSCULAR HGB CONC 32.1 g/dL (30-36); MEAN PLATELET VOLUME 9.5 FL (6.5-11.5); RED BLOOD COUNT 2.46 X10e (3.90-5.60); RED CELL DISTRIBUTION WIDTH 14.5 % (11.0-15.5); WHITE BLOOD COUNT 6.3 X10e3 (4.0-10.5)
[2016-09-10 15:56] LABS: INR 1.2; PROTHROMBIN TIME (PATIENT) 13.5 SECONDS (10.0-11.7)
[2016-09-10 16:20] LABS: FERRITIN 454 ng/mL (24-336)
[2016-09-11 05:31] LABS: HEMATOCRIT 25.4 % (38.0-50.0); HEMOGLOBIN 8.4 gm/dL (13.0-16.0); MEAN CELL VOLUME 91.7 FL (83-96); MEAN CORPUSCULAR HEMOGLOBIN 30.4 PG (28-34); MEAN CORPUSCULAR HGB CONC 33.1 g/dL (30-36); MEAN PLATELET VOLUME 9.6 FL (6.5-11.5); RED BLOOD COUNT 2.77 X10e (3.90-5.60); RED CELL DISTRIBUTION WIDTH 14.6 % (11.0-15.5)
[2016-09-11 05:38] LABS: WHITE BLOOD COUNT 10.9 X10e3 (4.0-10.5)
[2016-09-11 06:23] LABS: CALCIUM SERUM 7.8 mg/dL (8.4-10.2); GLOM FILT RATE Estimated 68.8 mL/min (>60); POTASSIUM 3.6 mmol/L (3.5-5.1)
[2016-09-12 05:56] LABS: HEMATOCRIT 29.2 % (38.0-50.0); HEMOGLOBIN 9.2 gm/dL (13.0-16.0); MEAN CELL VOLUME 92.2 FL (83-96); MEAN CORPUSCULAR HEMOGLOBIN 29.2 PG (28-34); MEAN CORPUSCULAR HGB CONC 31.6 g/dL (30-36); MEAN PLATELET VOLUME 9.6 FL (6.5-11.5); RED BLOOD COUNT 3.17 X10e (3.90-5.60); RED CELL DISTRIBUTION WIDTH 14.4 % (11.0-15.5); WHITE BLOOD COUNT 11.9 X10e3 (4.0-10.5)
[2016-09-12 06:24] LABS: INR 1.2; PROTHROMBIN TIME (PATIENT) 12.5 SECONDS (10.0-11.7)
[2016-09-12 06:39] LABS: BUN/CREATININE RATIO 17.27; CALCIUM SERUM 8.5 mg/dL (8.4-10.2); CREATININE SERUM 1.1 mg/dL (0.6-1.4); GLOM FILT RATE Estimated 61.3 mL/min (>60); POTASSIUM 4.8 mmol/L (3.5-5.1)
== END 2016-09-13 01:12 | DRG 871 ==
LOC: CED 18:48 → CICCU3 19:41 → CEDOF 19:41 → CED 20:11 → CEDOF 20:11 → CICCU3 09-03 18:36 → C3A PCU 09-07 16:43
PROVIDERS: Emergency Medicine; Hospitalist; Internal Medicine; Internal Medicine Cardiovascular Disease; Internal Medicine Pulmonary Disease; Nurse Practitioner; Physician Assistant Medical
PROC: 05HM33Z Insertion of Infusion Device into Right Internal Jugular Vein, Percutaneous Approach (ICD-10-PCS; 2016-09-03)
PROC: B543ZZA Ultrasonography of Right Jugular Veins, Guidance (ICD-10-PCS; 2016-09-03)
PROC: B24BYZZ Ultrasonography of Heart with Aorta using Other Contrast (ICD-10-PCS; 2016-09-04)
PROC: 30233N1 Transfusion of Nonautologous Red Blood Cells into Peripheral Vein, Percutaneous Approach (ICD-10-PCS; 2016-09-10)
PROC: 0DB68ZX Excision of Stomach, Via Natural or Artificial Opening Endoscopic, Diagnostic (ICD-10-PCS; principal; 2016-09-12 08:15)
DX: A41.9 Sepsis, unspecified organism (principal); G92 Toxic encephalopathy; R65.21 Severe sepsis with septic shock; I50.23 Acute on chronic systolic (congestive) heart failure; I47.2 Ventricular tachycardia; J96.02 Acute respiratory failure with hypercapnia; J96.01 Acute respiratory failure with hypoxia; J18.9 Pneumonia, unspecified organism; I11.0 Hypertensive heart disease with heart failure; E87.5 Hyperkalemia; D62 Acute posthemorrhagic anemia; N39.0 Urinary tract infection, site not specified; R47.01 Aphasia; E87.0 Hyperosmolality and hypernatremia; N17.9 Acute kidney failure, unspecified; K22.2 Esophageal obstruction; Z95.1 Presence of aortocoronary bypass graft; G40.909 Epilepsy, unspecified, not intractable, without status epilepticus; I25.10 Atherosclerotic heart disease of native coronary artery without angina pectoris; Z95.0 Presence of cardiac pacemaker; Z86.73 Personal history of transient ischemic attack (TIA), and cerebral infarction without residual deficits; Z79.01 Long term (current) use of anticoagulants; I25.5 Ischemic cardiomyopathy; I48.0 Paroxysmal atrial fibrillation; I08.3 Combined rheumatic disorders of mitral, aortic and tricuspid valves; Q54.1 Hypospadias, penile; K44.9 Diaphragmatic hernia without obstruction or gangrene; K29.70 Gastritis, unspecified, without bleeding; E87.6 Hypokalemia; D69.6 Thrombocytopenia, unspecified
CPT/HCPCS: 36415; 36430; 36600; 71010; 71250; 80048; 80053; 80076; 80200; 81003; 82274; 82553; 82607; 82728; 82803; 82947; 83605; 83735; 83880; 84100; 84443; 84484; 85025; 85027; 85610; 85730; 86850; 86900; 86901; 86923; 87040; 87086; 88305; 88312; 92526; 92610; 93005; 93306; 94640; 94660; 94760; 94761; 96360; 96361; 97163; 99285; C9113; G8978-GP; G8979-GP; G8980-GP; G8996-GN; G8997-GN; J0696; J1265; J1940; J1953; J2543; J3260; J3370; J3475; J3480; J7060; P9016

== ENCOUNTER 2016-10-06 16:01 | Inpatient (IN) | payer MEDICARE, BC, OTHER ==
[~2016-10-06] VITALS: Ht 165.1 cm; Wt 60.8 kg
--- NOTE | ~2016-10-06 | EKG ---
PATIENT: KELLI HADDAD UNIT #: [id number] Ventricular Rate: 69 BPM Atrial Rate: 66 BPM QRS Duration: 190 ms Q-T Interval: 470 ms QTC Calculation(Bezet): 503 ms Calculated R [place]: -77 degrees Calculated T [place]: 99 degrees Diagnosis Line: Ventricular-paced rhythm Diagnosis Line: Abnormal ECG Diagnosis Line: When compared with ECG of 02-SEP-2016 19:25, Diagnosis Line: Vent. rate has decreased BY 2 BPM Diagnosis Line: Confirmed by BING WEST MD ([id number]) on 10/07/2016 Diagnosis Line: 8:41:56 AM INTERPRETING MD: JENNA WHITE
--- NOTE | ~2016-10-06 | CO ---
Unit #: [id number] #: [id number] Patient: KELLI HADDAD [id number] [address] [address] [id number] I MR#: [id number] NAME: KELLI HADDAD. ROOM: [facility] Age: 85 Sex: M Admission Date: 10/06/2016 : 1930 Attending Physician: Merle Guaman M.D. Primary Care Physician: Neftali Pro M.D. Consultation Date: 10/08/2016 CONSULTATION REPORT REASON FOR CONSULTATION ICU management. HISTORY OF PRESENT ILLNESS This is a very pleasant 85-year-old male with a past medical history significant for coronary artery disease, hypertension, hyperlipidemia, multiple strokes, who is well known to our service from multiple previous admission, who presented to the emergency room with shortness of air. Patient is a longterm resident who was just discharged from the hospital a month ago after admission for pneumonia. Patient is unable to provide any history and all of the information was obtained from the medical record. He did report patient was transferred from the longterm due to worsening shortness of breath and hypoxia. There was no report of fever, chills, or night sweats. No noticeable cough. Patient is awake, alert and follows simple commands. PAST MEDICAL HISTORY 1. Coronary artery disease. 2. Paroxysmal atrial fibrillation. 3. Chronic anemia. 4. Systolic congestive heart failure with ejection fraction of 15% to 20%. 5. Cerebrovascular accident. 6. Seizure disorder. 7. Hypertension. 8. Hyperlipidemia. PAST SURGICAL HISTORY 1. CABG. 2. Mitral valve angioplasty. 3. Pacemaker placement. FAMILY HISTORY Noncontributory. ALLERGIES No known drug allergy. SOCIAL HISTORY Patient is a longterm resident. He is an ex-smoker. No history of alcohol or drug abuse. HOME MEDICATIONS Unit #: [id number] #: [id number] Patient: KELLI HADDAD 1. Aspirin. 2. Potassium. 3. Vitamin B12. 4. Protonix. 5. MiraLAX. 6. Lasix. 7. Ferrous sulfate. 8. Coreg. 9. Keppra. 10. Xarelto. 11. Remeron. 12. Flomax. 13. Tylenol. 14. Dulcolax. REVIEW OF SYSTEM Unable to obtain due to patient condition. PHYSICAL EXAMINATION GENERAL: The patient is in no acute distress. VITAL SIGNS: Blood pressure currently is 105/62, earlier it was in the mid 80s. HEENT: Atraumatic and normocephalic. EOMI. NECK: Supple. No JVD. No lymphadenopathy. CHEST: Decreased breath sounds bilaterally. HEART: S1 and S2. Positive systolic murmur. EXTREMITIES: Trace edema. SKIN: No rashes. [employer]: Patient is awake, alert, is confused with multiple histories of strokes in the past. He follows simple commands. DIAGNOSTIC STUDIES LABORATORY STUDIES: Creatinine 1.0, potassium 4.7, sodium 137. White blood count is 9.2, hemoglobin 9.7. IMAGING STUDIES: Chest x-ray is consistent with aspiration pneumonia versus pulmonary edema. ASSESSMENT 1. Acute hypoxic respiratory failure. 2. Acute on chronic systolic congestive heart failure with ejection fraction of 15% to 20%. 3. Extended spectrum beta-lactamase bacteremia. 4. Paroxysmal atrial fibrillation. 5. Possible aspiration pneumonia. 6. Seizure disorder. 7. Hypertension. 8. Hyperlipidemia. 9. Malnutrition. 10. Coronary artery disease. 11. Multiple ischemic stroke. PLANS 1. Patient will be monitored in ICU very closely. We will hold his Lasix at this point given his hypertension. 2. Gentle hydration as tolerated. 3. Broad spectrum antibiotics to cover for ESBL. 4. Bronchodilator and mucolytics. Unit #: [id number] #: [id number] Patient: KELLI HADDAD 5. Physical therapy. 6. PT eval. Dictated by... Galina Hickey M.D. EA/tor TD: 10/09/2016 05:32 JOB #: [id number] CONSULTATION REPORT Page 1 of 1 X GALINA DELUNA MD CONSULTATION REPORT
--- NOTE | ~2016-10-06 | CO ---
Unit #: [id number] #: [id number] Patient: KELLI HADDAD [id number] [address] [place], [place] [address] [id number] I MR#: [id number] NAME: KELLI HADDAD. ROOM: [facility] Age: 85 Sex: M Admission Date: 10/06/2016 : 1930 Attending Physician: Merle Guaman M.D. Primary Care Physician: Neftali Pro M.D. Consultation Date: 10/07/2016 CONSULTATION REPORT REASON FOR CONSULTATION Gram-negative sepsis. HISTORY OF PRESENT ILLNESS This is an 85-year-old gentleman from a longterm, who was unable to provide any history. Information was obtained through review of the chart and prolonged discussion with nursing staff. He is a longterm resident, who was admitted with what appears to be shortness of breath, and congestive heart failure. He was hypoxic on admission. The patient does have indwelling Marin catheter, but does not have any IV, central line, or a PICC line. He was treated for congestive heart failure, but then blood cultures became positive for gram-negative neelima, for which Zosyn was started and ID was consulted for further evaluation. The patient is currently stable. He is awake, but lethargic and is not communicating. He does not appear to be in any distress. He denies any dysuria, abdominal pain, headache, or cough. PAST MEDICAL HISTORY Coronary artery disease, status post CABG; atrial fibrillation; chronic anemia; congestive heart failure; pacemaker implantation; CVA; bedridden status; seizure disorder; anticoagulation therapy; hypertension; hyperlipidemia. PREVIOUS SURGERIES Pacemaker implantation, coronary artery bypass grafting. FAMILY HISTORY Negative. ALLERGIES None. SOCIAL HISTORY He is a longterm resident. No history of alcohol, drug, or tobacco abuse. HOME MEDICATIONS Aspirin, potassium, vitamin B12, Protonix, MiraLAX, Lasix, ferrous sulfate, Coreg, Keppra, Xarelto, Remeron, Flomax, Tylenol or Dulcolax. Current medications in the hospital include Zosyn, lisinopril, Flomax, Remeron, Keppra, Coreg, furosemide, bisacodyl, Tylenol, ferrous sulfate, Xarelto, MiraLAX, vitamin B12, Klor-Con, aspirin. SYSTEMIC REVIEW Unit #: [id number] #: [id number] Patient: KELLI HADDAD Unable to obtain. Chart was reviewed. Discussions were held with the nursing staff. There is no obvious sacral or pelvic decubitus. The patient has an indwelling Marin catheter. There is no cough, abdominal pain, or headache. He does not have any PICC line or central line. PHYSICAL EXAMINATION GENERAL: Reveals an elderly white male, who is awake, but lethargic, unable to communicate and does not appear to be in any distress. VITAL SIGNS: Temperature 98.7, heart rate 69, respiration 24, blood pressure 112/49. No fever was documented during this admission and no hypertension was recorded. The lowest blood pressure was 90/52 yesterday. NECK: Supple. There is no JVD. Has trace edema bilaterally. LUNGS: Clear to percussion and auscultation. HEART: Sounds are normal. There are no murmurs. ABDOMEN: Soft and nontender. Marin catheter is in place. There is no rebound or guarding. Bowel sounds normal. NEUROLOGIC: He is awake. Difficult to have him follow commands, but is able to move all 4 extremities. DIAGNOSTIC STUDIES LABORATORY RESULTS: White count is 8.2, hemoglobin 9.3, platelets 222, neutrophils 73, lymphocytes 12, monocytes 11. Sodium 139, potassium 4.3, chloride 98, CO2 of 32, glucose 159, BUN 19, creatinine 0.9. Blood culture, gram-negative rods. ID is pending. Lactic acid 1.2. Urinalysis is pending. IMAGING STUDIES: Chest x-ray shows stable cardiomegaly with small bilateral effusions, possible developing pulmonary edema. IMPRESSION Gram-negative bacteremia, source unclear. The patient does not appear septic or toxic. At this time, the source likely is urinary tract infection, possible pneumonia, endocarditis, pacemaker infection should also be excluded. RECOMMENDATION Agree with Zosyn. I will give dose of tobramycin for double coverage. In case if it is a resistant gram negative, we will check serum procalcitonin level and repeat blood cultures. Further recommendations will follow. Dictated by... Nikhil Stoner/irving TD: 10/07/2016 22:54 JOB #: [id number] Unit #: [id number] #: [id number] Patient: KELLI HADDAD CONSULTATION REPORT Page 1 of 1 X Abiel Rodriguez MD CONSULTATION REPORT
--- NOTE | ~2016-10-06 | CR72 ---
[facility] A Service of [facility] RADIOLOGY TEXT RESULTS PATIENT: KELLI HADDAD LOCATION: [facility] : 31 UNIT #: [id number] AGE: [address]: Merle Guaman MD SEX: M ORDER DR: [id number] [facility] [address] [place], [place] [address] [id number] I MR#: [id number] Acc #: [id number] NAME: KELLI HADDAD. : 1930 SEX: M STUDY DATE/TIME: 10/06/2016 17:24 UNIT: [facility] ROOM: [facility] STUDY DESCRIPTION: CR Chest Single View Portable Attending Physician: Merle Guaman M.D. Ordering Physician: Juan Jose Balbuena M.D. Primary Care Physician: Neftali Pro M.D. MEDICAL IMAGING REPORT This report is preliminary unless electronic signature is present EXAM Portable chest, 10/06/2016, at 17:24. INDICATIONS Shortness of air today. FINDINGS AP portable views of the chest compared to 09/08/2016. Cardiomegaly is stable, status post valve repair and pacer placement. Trace bilateral pleural effusions are again seen. There is some vascular congestion with mild opacity in the bases suggesting early edema. No pneumothorax is seen. IMPRESSION Stable cardiomegaly with small bilateral effusions. There is probably a developing mild pulmonary edema. Dictated by... Sebastian Tierney Jr., M.D. THIS IS AN ELECTRONICALLY VERIFIED REPORT Sebastian Tierney Jr., M.D. at 10/07/2016 4:12 PM LEATHA/estefany TD: 10/06/2016 23:18 JOB #: [id number] MEDICAL IMAGING REPORT Page 1 of 1 COPY
--- NOTE | ~2016-10-06 | HP ---
Unit #: [id number] #: [id number] Patient: KELLI HADDAD [id number] [address] [address] [id number] I MR#: [id number] NAME: KELLI HADDAD ROOM: 562 Age: 85 Sex: M Admission Date: 10/06/2016 : 1930 Attending Physician: Merle Guaman M.D. Primary Care Physician: Neftali Pro M.D. HISTORY AND PHYSICAL CHIEF COMPLAINT Shortness of breath HISTORY OF PRESENT ILLNESS Koraxc-dfuw-xpge-old male who is well-known to us from previous admissions, has history of multiple medical problems came because of the shortness of breath. The patient's pulse oximetry in jail was 88%. The patient is not able to provide any history at this time. Most of the history was taken from emergency room notes and history is being taken from the previous notes that I know him. There is no history of fever or chills. No history of chest pain. No history of cough or sputum production. PAST MEDICAL HISTORY 1. Coronary artery disease status post CABG 2. Paroxysmal atrial fibrillation 3. Chronic anemia 4. Systolic congestive heart failure with ejection fraction of 15-20% 5. Pacemaker placement 6. Cerebrovascular accident in the past 7. Seizure disorder 8. Anticoagulation therapy 9. Hypertension 10. Hyperlipidemia PAST SURGICAL HISTORY 1. Coronary artery bypass graft with mitral valve annuloplasty in 2001 2. Pacemaker placement FAMILY HISTORY Noncontributory ALLERGIES No known drug allergies SOCIAL HISTORY The patient is a jail resident. He has past history of smoking. No history of alcohol abuse or drug abuse. HOME MEDICATIONS 1. Aspirin 81 mg daily 2. Potassium 20 mEq daily 3. Vitamin B12 1000 mcg daily Unit #: [id number] #: [id number] Patient: KELLI HADDAD 4. Protonix 40 mg daily 5. MiraLax 17 grams daily 6. Lasix 20 mg daily 7. Ferrous sulfate 325 mg b.i.d. 8. Coreg 3.125 mg twice a day 9. Keppra 750 mg twice a day 10. Xarelto 50 mg daily 11. Remeron 7.5 mg at bedtime 12. Flomax 0.4 mg at bedtime 13. Tylenol 650 every 4 p.r.n. 14. Ducolax 200 mg per rectum daily if not bowel movement REVIEW OF SYSTEMS Is not obtainable. PHYSICAL EXAMINATION GENERAL: The patient is being evaluated in room 562. The patient is resting, not really providing much history. VITAL SIGNS: Blood pressure is 111/52, respiratory rate 24, pulse rate 69, temperature 97.7, oxygen saturation is 99%. No respiratory distress. HEENT: Head is normocephalic. NECK: Supple. CHEST: Decreased air entry. Basal rales are heard. CARDIOVASCULAR: S1, S2 is positive. Pacemaker. ABDOMEN: Soft. EXTREMITIES: Negative edema. DIAGNOSTIC STUDIES LABORATORY: WBC 8, hemoglobin 10.3, hematocrit 31.4 and platelet count of 216,000. PT/INR is 15.3 and 1.4. Lactic acid 1.2. Sodium 138, potassium 4.6, chloride 100, BUN 18, creatinine 0.8. Liver enzymes are normal. BNP is elevated to 4494. Troponin less than 0.05. Blood cultures are positive for gram negative rods. IMAGING: Chest x-ray shows stable cardiomegaly with small bilateral effusions. Developing mild pulmonary edema. ASSESSMENT AND PLAN The patient is being admitted to telemetry unit at [facility] with a diagnosis of: 1. Acute hypoxic respiratory failure. 2. Qjlju-ni-iiftjba systolic congestive heart failure with ejection fraction of 15-20%. 3. Bacteremia, gram negative rods, both sets 4. Paroxysmal atrial fibrillation on anticoagulation therapy 5. Coronary artery disease status post coronary artery bypass graft. 6. Seizure disorder. 7. Hypertension. 8. Hyperlipidemia. Plan is admit to telemetry unit. Dr. Ying has been consulted. IV dieresis is being done. Infectious disease will be consulted. IV antibiotic is being started. Urinalysis and culture will be done. Please refer to progress note for further orders. Code status is "DO NOT RESUSCITATE." Unit #: [id number] #: [id number] Patient: KELLI HADDAD Dictated by Nikhil Jara/jarred TD: 10/07/2016 16:43 JOB #: [id number] HISTORY AND PHYSICAL Page 1 of 1 X Merle Guaman MD HISTORY AND PHYSICAL
--- NOTE | ~2016-10-06 | DS ---
Unit #: [id number] #: [id number] Patient: KELLI HADDAD [id number] [address] [address] [id number] I MR#: [id number] NAME: KELLI HADDAD ROOM: 310 Age: 85 Sex: M Admission Date: 10/11/2016 : 1930 Discharge Date: 10/13/2016 Attending Physician: Merle Guaman M.D. Primary Care Physician: Neftali Pro M.D. DISCHARGE SUMMARY FINAL DIAGNOSES 1. Acute hypoxic respiratory failure. 2. Escherichia coli bacteremia. 3. Urinary tract infection with urine culture positive for extended spectrum betalactamase production, Escherichia coli more than 100,000 colonies. 4. Acute systolic congestive heart failure with left ventricular ejection fraction of 10% to 15%. 5. Coronary artery disease with history of previous CABG. 6. Paroxysmal atrial fibrillation. 7. Pacemaker in place. 8. History of cerebrovascular accident. 9. History of seizures. 10. Anemia. 11. Chronic aspiration. DISCHARGE MEDICATIONS 1. Intravenous meropenem 500 mg q.6 hourly until 10/20/16. This is per infectious disease. 2. MiraLAX 17 g daily. 3. Bisacodyl 10 mg per rectum daily p.r.n. for no bowel movement in four days. 4. Coreg 3.125 mg p.o. b.i.d. Hold if systolic blood pressure is less than 100. 5. Protonix 40 mg daily. 6. Aspirin 81 mg daily. 7. Ferrous sulfate 325 mg b.i.d. 8. Lasix 20 mg daily. 9. Potassium 20 mEq daily. 10. Xarelto 15 mg daily. 11. Keppra 750 mg twice a day. 12. Flomax 0.4 mg q. h.s. CONSULTATION DURING HOSPITALIZATION 1. Dr. Jordan - Infectious Disease. 2. Dr. Ying - Cardiology Services. 3. Dr. Rafi Hickey - Pulmonary Services. 4. Dr. Rodríguez - Gastroenterology Services. LAB WORKUP ON DISCHARGE Sodium 133, potassium 4.0, chloride 94, BUN 14, creatinine 0.7, calcium 9.1. CBC shows WBC 7.0, hemoglobin 8.7, hematocrit 26.4 and platelet count of Unit #: [id number] #: [id number] Patient: KELLI HADDAD 229. Urine culture - ESBL E. coli more than 100,000 colony. Hemoccult in the stool positive. Blood culture - E. coli positive. Repeat one on 10/08 was no growth. BNP on admission 494. SIGNIFICANT RADIOLOGICAL STUDIES Chest x-ray on 10/06/2016 shows stable cardiomegaly with bilateral effusion, probably developing mild pulmonary edema. HOSPITAL COURSE Mr. Kelli Haddad is an 85-year-old male who was admitted with a complaint of shortness of breath. Patient's pulse ox in the custodial was 88%. Patient could not provide any history. Admitting diagnosis was acute hypoxic respiratory failure, acute on chronic systolic congestive heart failure, bacteremia with Gram-negative rods, paroxysmal atrial fibrillation. Patient was started on broad spectrum IV antibiotic. Dr. Rodriguez was consulted. Patient was started on IV Zosyn in the beginning and later on changed to IV meropenem because of ESBL production. CLINT was done by Dr. Ying which did not show any vegetation. It did show left ventricular ejection fraction of 10-15% and right ventricular systolic pressure of 55. Patient does have mild to moderately enlarged right atrial, moderately dilated right ventricle and moderate aortic stenosis is present, and moderate mitral regurgitation. The patient did develop hypotension during hospitalization and was on pressor. Patient has been off pressor. Has been started on procalcitonin. Patient is on ProAmatine at this time. Beta blockers were held in the hospital. We are going to restart it. Hold Coreg if systolic blood pressure is less than 100. Patient has end stage severe ischemic cardiomyopathy with hypotension. Patient's prognosis is poor. EXAMINATION ON DISCHARGE Blood pressure is 124/59, respiratory rate 18, pulse is 69, temperature 97.4. CHEST has decreased air entry. CVS - S1, S2 positive. ABDOMEN is soft. EXTREMITIES - slight edema is present. Cold extremities. DISCHARGE INSTRUCTIONS 1. Patient is being discharged home after PICC line placement. 2. Continue IV antibiotic until 10/20/16 as per infectious disease. 3. Oxygen to keep saturation above 94%. MEDICATION As per Med Rec. PROGNOSIS Poor. Dictated by... Merle Guaman M.D. Saira Unit #: [id number] #: [id number] Patient: KELLI HADDAD Quiana TD: 10/13/2016 10:56 JOB #: [id number] DISCHARGE SUMMARY Page 1 of 1 X Merle Guaman MD DISCHARGE SUMMARY
--- NOTE | ~2016-10-06 | XA166 ---
[facility] A Service of [facility] & [facility] RADIOLOGY TEXT RESULTS PATIENT: KELLI HADDAD LOCATION: [facility] 310- : 31 UNIT #: [id number] AGE: [address]: Merle Guaman MD SEX: M ORDER DR: [id number] [facility] [address] [facility] [place], [place] [address] [id number] I MR#: [id number] Acc #: [id number] NAME: KELLI HADDAD. : 1930 SEX: M STUDY DATE/TIME: 10/13/2016 14:57 [facility] ROOM: 310 STUDY DESCRIPTION: XA PICC Line Placement WO Port Attending Physician: Merle Guaman M.D. Ordering Physician: Merle Guaman M.D. Primary Care Physician: Neftali Pro M.D. MEDICAL IMAGING REPORT This report is preliminary unless electronic signature is present EXAM PICC placement with ultrasound and fluoroscopic guidance HISTORY Venous access needed for antibiotics. TECHNIQUE The procedure was explained to the patient including risks, benefits and complications. Informed consent was obtained and a formal time-out procedure was utilized. Full barrier sterile technique was utilized including skin prep with ChloraPrep, long drapes, gown, gloves, mask, caps and shoe covers. Sterile ultrasound probe cover and sterile ultrasound gel. Using full barrier sterile technique and following local anesthesia with 1% Xylocaine, the basilic vein was punctured above the elbow on the left with ultrasound guidance. Ultrasound was used to confirm vessel patency which was confirmed and permanent ultrasound images were recorded. An 0.018 guidewire was passed into the superior vena cava under fluoroscopic guidance. It was noted that the wire turned upwards into the upper superior vena cava rather than downwards because of pacemaker wires and narrowing of the lower SVC. This positioning was still satisfactory. A 4-Welsh single-lumen PICC was measured to 38 cm cut and deployed with the tip positioned in the upper superior vena cava. The PICC functions normally. It was secured in place with an antibiotic patch and adhesive dressing. 1 spot film was obtained with fluoroscopy time of 1.3 minutes. IMPRESSION Successful placement of a 4-Welsh single-lumen PICC via the left basilic vein above the elbow with ultrasound and fluoroscopic guidance. Dictated by... Sebastian Issa M.D. [facility] A Service of [facility] RADIOLOGY TEXT RESULTS PATIENT: KELLI HADDAD LOCATION: [facility] 310-01 : 31 UNIT #: [id number] AGE: [address]: Merle Guaman MD SEX: M ORDER DR: THIS IS AN ELECTRONICALLY VERIFIED REPORT Sebastian Issa M.D. at 10/14/2016 11:30 AM CIRA/isha TD: 10/14/2016 05:47 JOB #: [id number] MEDICAL IMAGING REPORT Page 1 of 1 COPY
--- NOTE | ~2016-10-06 | CO ---
Unit #: [id number] #: [id number] Patient: KELLI HADDAD [id number] [address] [place], [place] [address] [id number] I MR#: [id number] NAME: KELLI HADDAD. ROOM: [facility] Age: 85 Sex: M Admission Date: 10/06/2016 : 1930 Attending Physician: Merle Guaman M.D. Primary Care Physician: Neftali Pro M.D. Consultation Date: 10/07/2016 CONSULTATION REPORT REASON FOR CONSULTATION Acute hypoxic respiratory failure and acute on chronic systolic congestive heart failure. HISTORY OF PRESENT ILLNESS This is an 85-year-old white male, who is a custodial resident, who has a history in the past of having a CABG and mitral valve annuloplasty back in 2002. His last stress test was in 2008, treated medically. He has a previous history of paroxysmal atrial fibrillation, on Xarelto; previous stroke; history of seizures; hypertension; and history of anemia. He was just recently here at this facility from 09/02/2016 through 09/12/2016 with acute hypoxic respiratory failure, sepsis, UTI, and anemia. He had an EGD that showed gastric erosion/echo showed LVEF of 20% to 25% and he has a low gradient severe aortic stenosis and severe pulmonary hypertension. The patient was sent from the custodial with increased shortness of breath and in low saturation levels. It was documented 80% on room air. On interview with the patient, he is a poor historian due to his advanced age and questionable some mild dementia. He remembers feeling short of breath, but says he feeling better. He denies any chest pain or pain in his neck, bilateral jaws, shoulders, arms, or elbow. He denies any palpitations. No syncopal episodes. He reports no cough, fever, or chills. In the emergency room, the patient's blood pressure was 91/52, heart rate 70, respirations 22, temperature is 98, and O2 saturation was 95% on 2L. His initial workup; his chest x-ray did show some small bilateral effusions and mild pulmonary edema and some vascular congestion. His creatinine is 0.8, potassium 4.6, BNP 494, and lactic acid 1.4. His EKG shows V paced. The patient was given a dose of IV Lasix and was admitted for further management. Cardiology consult to assist with further management. PAST MEDICAL HISTORY 1. He is a custodial resident. 2. Hypertension. 3. Hyperlipidemia. 4. History of anemia. 5. Coronary artery disease, previous CABG back in 2001 - STACK to the diagonal, saphenous vein graft to the LAD, saphenous vein graft to the posterolateral branch and had mitral valve annuloplasty. 6. In 2008, he had a 2D echo with LVEF of 40% to 50%, sifm-ud-ekkhznmr TR, mild , and mild MR. On 09/04/2016, a 2D echo with LVEF of 20% to 25% with low gradient severe aortic stenosis, moderate mitral regurgitation, mild tricuspid regurgitation, and severe pulmonary hypertension with elevated RVSP at 90 mmHg. 7. Recent admission from 09/02/2016 through 09/12/2016 for acute hypoxic Unit #: [id number] #: [id number] Patient: KELLI HADDAD Quiana respiratory failure, sepsis, UTI, and anemia, had an EGD showed some gastric erosions. 8. Permanent pacemaker secondary to sick sinus syndrome, placed in 2003, it is [employer]. 9. Paroxysmal atrial fibrillation, on Xarelto. 10. Previous stroke. 11. History of seizures. 12. Reformed smoker. PAST SURGICAL HISTORY 1. Permanent pacemaker in 2003, it is [employer]. 2. Coronary artery bypass graft x3 in 2001 and also had mitral valve annuloplasty. 3. EGD on 09/12/2016, shows esophageal ring nonobstructing, hiatal hernia, diffuse gastritis, and multiple gastric erosions. No active bleeding. Normal duodenum and distal duodenum. HOME MEDICATIONS 1. Aspirin 81 mg p.o. daily. 2. K-Dur 20 mEq p.o. daily. 3. Vitamin B12 of 1000 mcg p.o. daily. 4. Protonix 40 mg p.o. daily. 5. MiraLAX 17 g p.o. daily. 6. Lasix 20 mg p.o. daily. 7. Ferrous sulfate 325 mg p.o. twice daily. 8. Carvedilol 3.125 mg p.o. twice daily. 9. Keppra 750 mg p.o. twice daily. 10. Xarelto 15 mg p.o. daily. 11. Mirtazapine 7.5 mg p.o. at bedtime. 12. Flomax 0.4 mg p.o. at bedtime. 13. Tylenol 650 mg every 4 hours p.r.n. 14. Dulcolax 10 mg per rectum daily p.r.n. for bowel movement for constipation. ALLERGIES No known drug allergies. SOCIAL HISTORY The patient resides in a custodial. He is a reformed tobacco user. No alcohol or illicit drug abuse. The patient may be fairly sedentary and may be wheelchair or uses a walker. FAMILY HISTORY Noncontributory. REVIEW OF SYSTEMS See details in HPI. PHYSICAL EXAMINATION GENERAL: On exam, Mr. Haddad is an 85-year-old white male. He is awake. He answers some simple questions appropriately, but has some poor memory recall. VITAL SIGNS: Currently; blood pressure is 104/51, heart rate 70, respirations 16, temperature 98.6, and O2 saturations 98% on 2L. NECK: Trachea midline. No thyromegaly or lymphadenopathy. Normal carotid upstrokes. No jugular venous distention. HEART: S1 and S2. Regular rate and rhythm. He is paced, has systolic murmur over aortic region and left sternal border. Unit #: [id number] #: [id number] Patient: KELLI HADDAD LUNGS: Diminished with bilateral crackles in bases. Fine scattered rales in bases. ABDOMEN: Soft and nontender. EXTREMITIES: Pedal pulses are palpable, very faint. No pedal edema. DIAGNOSTIC STUDIES LABORATORY RESULTS: Glucose is 114, BUN 18, creatinine 0.8, EGFR is 32.1, sodium 138, potassium 4.6, chloride 100, CO2 of 32, and calcium is 8.8. Total protein 7.6, albumin 2.7, bilirubin total 0.6, AST 17, ALT 11, and alkaline phosphatase is 64. BNP is 494. Lactic acid is 1.2. WBC 6.7, hemoglobin 10.2, hematocrit 31.7, and platelets are 208. Initial cardiac enzymes; CK-MB is 3.6 with troponin less than 0.05 and CK-MB is 2.7 with troponin less than 0.05. IMAGING STUDIES: Chest x-ray shows stable cardiomegaly with small bilateral effusions, probably mild pulmonary edema. EKG shows ventricular paced rhythm. IMPRESSION 1. Acute hypoxic respiratory failure. 2. Acute on chronic systolic congestive heart failure. Last 2D echo on 09/04/2016 showed LVEF of 20% to 25%. He has a low gradient severe aortic stenosis, moderate mitral regurgitation, mild tricuspid regurgitation, severe pulmonary hypertension with elevated RVSP at 90 mmHg. 3. Hypertension, which now his blood pressure is a little low. 4. Hyperlipidemia. 5. Anemia, which is stable. 6. Coronary artery disease with previous coronary artery bypass graft back in 2001 and also had mitral valve annuloplasty. 7. Permanent pacemaker for sick sinus syndrome. 8. Paroxysmal atrial fibrillation, on Xarelto. 9. Previous stroke. 10. History of seizures. 11. Recent admission for acute hypoxic respiratory failure, sepsis, urinary tract infection, and anemia and had an esophagogastroduodenoscopy that showed gastric erosions. 12. He is a reformed smoker. PLAN 1. We will gently diurese him with IV Lasix. Strict intake and output and daily weights. Monitor labs, especially BUN, creatinine, and electrolytes and supplement when needed. 2. The patient has a low EF of 20% to 25%, was checked early in 09/2016. We tried to put him on an RAIMUNDO inhibitor, lisinopril 2.5 mg p.o. daily, with parameters. On exam, there are no signs or symptoms of unstable angina. His cardiac enzymes are negative. His EKG does not show anything acute. 3. The patient is a DNR status. His family and the patient wants conservative medical management. 4. The patient has urine and blood cultures pending. 5. No indication of any pneumonia. 6. Continue the patient on his Xarelto for his paroxysmal atrial fibrillation. The patient is on beta-monse, low-dose aspirin, and potassium and the patient currently is not on statin. His last lipid profile; his LDL was 63. 7. Further recommendations pending per Dr. Ying. Thank you very much for allowing us to assist in care. Unit #: [id number] #: [id number] Patient: KELLI HADDAD Dictated by... Pura Teixeira/modl TD: 10/07/2016 14:03 JOB #: [id number] CC: Martinez Mckinney M.D. CONSULTATION REPORT Page 1 of 1 X Rupa Gonzales APRN X CONSULTATION REPORT
[~2016-10-06 16:01] MED LIST changes: +CORTISPORIN OIN15 GM TOP; +PROBIOTIC250 MG PO
[2016-10-06 17:33] LABS: BASOPHIL% 0.4 % (0-2.5); EOSINOPHIL# 0.2 X10e3 (0-0.7); EOSINOPHIL% 2.2 % (0.0-7.0); HEMATOCRIT 31.4 % (38.0-50.0); HEMOGLOBIN 10.3 gm/dL (13.0-16.0); LYMPHOCYTE# 1.1 X10e3 (1.0-3.5); LYMPHOCYTE% 14.1 % (17.0-45.0); MEAN CELL VOLUME 93.6 FL (83-96); MEAN CORPUSCULAR HEMOGLOBIN 30.6 PG (28-34); MEAN CORPUSCULAR HGB CONC 32.7 g/dL (30-36); MEAN PLATELET VOLUME 7.9 FL (6.5-11.5); MONOCYTE# 1.1 X10e3 (0-1.0); MONOCYTE% 13.7 % (3.0-12.0); NEUTROPHIL# 5.5 X10e3 (1.5-7.1); NEUTROPHIL% 69.6 % (40-75); PLATELET COUNT 216 X10e3 (140-420); RED BLOOD COUNT 3.36 X10e (3.90-5.60)
[2016-10-06 17:34] LABS: DIFF IND NO
[2016-10-06 17:46] LABS: INR 1.4; PARTIAL THROMBOPLASTIN TIME 33.4 SECONDS (23.5-31.3); PROTHROMBIN TIME (PATIENT) 15.3 SECONDS (10.0-11.7)
[2016-10-06 17:53] LABS: ALBUMIN SERUM 2.7 g/dL (3.5-5.0); BILIRUBIN, DIRECT 0.1 mg/dL (0.0-0.2); BILIRUBIN,INDIRECT 0.5 mg/dL (0.0-0.9); BILIRUBIN,TOTAL 0.6 mg/dL (0.2-2.0); BUN/CREATININE RATIO 22.5; CALCIUM SERUM 8.8 mg/dL (8.4-10.2); CREATININE SERUM 0.8 mg/dL (0.6-1.4); GLOM FILT RATE Estimated 82.1 mL/min (>60); POTASSIUM 4.6 mmol/L (3.5-5.1); PROTEIN TOTAL SERUM 7.6 g/dL (6.0-8.3)
[2016-10-06 18:03] LABS: POC - CKMB 3.6 ng/mL (0.0-7.9); POC - TROPONIN <0.05 ng/mL (<=0.05)
[2016-10-06] MEDS ORDERED: ASPIRIN EC81 M1 PO (18:39)
[2016-10-06] MEDS ORDERED: K-DUR20 ME2 PO (18:39)
[2016-10-06] MEDS ORDERED: VITAMIN B122500 MCG PO (18:40)
[2016-10-06] MEDS ORDERED: MIRALAX17 G2 PO (18:40)
[2016-10-06] MEDS ORDERED: PROTONIX PO (18:40)
[2016-10-06] MEDS ORDERED: FERROUS SULFAT324 MG PO (18:41)
[2016-10-06] MEDS ORDERED: COREG3.125 MG PO (18:41)
[2016-10-06] MEDS ORDERED: LASIX20 MG PO (18:41)
[2016-10-06] MEDS ORDERED: KEPPRA750 M1 PO (18:42)
[2016-10-06] MEDS ORDERED: MIRTAZAPINE7.5 MG PO (18:42)
[2016-10-06] MEDS ORDERED: XARELTO15 MG PO (18:42)
[2016-10-06] MEDS ORDERED: FLOMAX0.4 M1 PO (18:43)
[2016-10-06] MEDS ORDERED: DULCOLAX10 MG PR (18:44)
[2016-10-06] MEDS ORDERED: TYLENOL325 M1 PO (18:44)
[2016-10-06 19:16] LABS: POC - CKMB 2.7 ng/mL (0.0-7.9); POC - TROPONIN <0.05 ng/mL (<=0.05)
[2016-10-07 10:59] LABS: BASOPHIL% 0.5 % (0-2.5); EOSINOPHIL# 0.2 X10e3 (0-0.7); EOSINOPHIL% 2.7 % (0.0-7.0); HEMATOCRIT 31.5 % (38.0-50.0); HEMOGLOBIN 10.2 gm/dL (13.0-16.0); LYMPHOCYTE# 0.9 X10e3 (1.0-3.5); LYMPHOCYTE% 12.8 % (17.0-45.0); MEAN CELL VOLUME 94.1 FL (83-96); MEAN CORPUSCULAR HEMOGLOBIN 30.4 PG (28-34); MEAN CORPUSCULAR HGB CONC 32.3 g/dL (30-36); MEAN PLATELET VOLUME 8.3 FL (6.5-11.5); MONOCYTE# 0.8 X10e3 (0-1.0); MONOCYTE% 11.3 % (3.0-12.0); NEUTROPHIL# 4.9 X10e3 (1.5-7.1); NEUTROPHIL% 72.7 % (40-75); PLATELET COUNT 208 X10e3 (140-420); RED BLOOD COUNT 3.34 X10e (3.90-5.60); RED CELL DISTRIBUTION WIDTH 15.5 % (11.0-15.5); WHITE BLOOD COUNT 6.7 X10e3 (4.0-10.5)
[2016-10-07 11:01] LABS: DIFF IND NO
[2016-10-07 11:25] LABS: BUN/CREATININE RATIO 21.11; CREATININE SERUM 0.9 mg/dL (0.6-1.4); GLOM FILT RATE Estimated 78.2 mL/min (>60); POTASSIUM 4.3 mmol/L (3.5-5.1)
[2016-10-07 20:09] LABS: BASOPHIL% 0.3 % (0-2.5); EOSINOPHIL# 0.2 X10e3 (0-0.7); EOSINOPHIL% 2.4 % (0.0-7.0); HEMOGLOBIN 9.3 gm/dL (13.0-16.0); LYMPHOCYTE% 12.4 % (17.0-45.0); MEAN CELL VOLUME 93.6 FL (83-96); MEAN CORPUSCULAR HEMOGLOBIN 30.2 PG (28-34); MEAN CORPUSCULAR HGB CONC 32.2 g/dL (30-36); MEAN PLATELET VOLUME 8.2 FL (6.5-11.5); MONOCYTE% 11.7 % (3.0-12.0); NEUTROPHIL% 73.2 % (40-75); PLATELET COUNT 222 X10e3 (140-420); RED CELL DISTRIBUTION WIDTH 15.3 % (11.0-15.5); WHITE BLOOD COUNT 8.2 X10e3 (4.0-10.5)
[2016-10-07 20:15] LABS: DIFF IND NO
[2016-10-07 20:35] LABS: BUN/CREATININE RATIO 22.22; CALCIUM SERUM 8.4 mg/dL (8.4-10.2); CREATININE SERUM 0.9 mg/dL (0.6-1.4); GLOM FILT RATE Estimated 78.2 mL/min (>60); POTASSIUM 4.7 mmol/L (3.5-5.1)
[2016-10-08 05:07] LABS: BASOPHIL% 0.5 % (0-2.5); EOSINOPHIL# 0.2 X10e3 (0-0.7); EOSINOPHIL% 2.2 % (0.0-7.0); HEMATOCRIT 29.4 % (38.0-50.0); HEMOGLOBIN 9.7 gm/dL (13.0-16.0); LYMPHOCYTE# 1.4 X10e3 (1.0-3.5); LYMPHOCYTE% 15.7 % (17.0-45.0); MEAN CELL VOLUME 93.5 FL (83-96); MEAN CORPUSCULAR HEMOGLOBIN 30.8 PG (28-34); MONOCYTE# 1.2 X10e3 (0-1.0); NEUTROPHIL# 6.3 X10e3 (1.5-7.1); NEUTROPHIL% 68.6 % (40-75); PLATELET COUNT 223 X10e3 (140-420); RED BLOOD COUNT 3.14 X10e (3.90-5.60); RED CELL DISTRIBUTION WIDTH 15.4 % (11.0-15.5); WHITE BLOOD COUNT 9.2 X10e3 (4.0-10.5)
[2016-10-08 05:08] LABS: DIFF IND NO
[2016-10-08 06:37] LABS: CALCIUM SERUM 8.5 mg/dL (8.4-10.2); GLOM FILT RATE Estimated 68.8 mL/min (>60); POTASSIUM 4.7 mmol/L (3.5-5.1)
[2016-10-08 08:43] LABS: URINE APPEARANCE CLEAR; URINE BILIRUBIN NEG (NEG); URINE BLOOD 1+ (NEG); URINE COLOR YELLOW; URINE GLUCOSE NEG (NEG); URINE KETONE NEG (NEG); URINE LEUKOCYTE ESTERASE 2+ (NEG); URINE NITRATE POS (NEG); URINE PROTEIN NEG (NEG); URINE SPECIFIC GRAVITY 1.018 (1.003-1.035); URINE UROBILINOGEN 0.2 MG/DL (NEG)
[2016-10-08 08:45] LABS: URINE BACTERIA AUWI NEG (NEGATIVE); URINE SQUAMOUS EPITHELIAL CELL NONE SEEN /[HPF]
[2016-10-08 09:07] LABS: URBCS1 AUWI 0-2 /[HPF] (0-2); URINE MUCUS PRESENT; URINE YEAST PRESENT
[2016-10-08 09:08] LABS: CULTURE INDICATED? NO
[2016-10-09 05:16] LABS: BASOPHIL% 0.4 % (0-2.5); EOSINOPHIL# 0.1 X10e3 (0-0.7); EOSINOPHIL% 1.8 % (0.0-7.0); HEMATOCRIT 27.2 % (38.0-50.0); HEMOGLOBIN 8.8 gm/dL (13.0-16.0); LYMPHOCYTE# 1.4 X10e3 (1.0-3.5); LYMPHOCYTE% 16.5 % (17.0-45.0); MEAN CORPUSCULAR HEMOGLOBIN 30.4 PG (28-34); MEAN CORPUSCULAR HGB CONC 32.4 g/dL (30-36); MEAN PLATELET VOLUME 8.4 FL (6.5-11.5); MONOCYTE% 12.1 % (3.0-12.0); NEUTROPHIL# 5.7 X10e3 (1.5-7.1); NEUTROPHIL% 69.2 % (40-75); PLATELET COUNT 214 X10e3 (140-420); RED BLOOD COUNT 2.89 X10e (3.90-5.60); RED CELL DISTRIBUTION WIDTH 15.7 % (11.0-15.5); WHITE BLOOD COUNT 8.2 X10e3 (4.0-10.5)
[2016-10-09 05:33] LABS: CALCIUM SERUM 8.8 mg/dL (8.4-10.2); CREATININE SERUM 0.8 mg/dL (0.6-1.4); GLOM FILT RATE Estimated 82.1 mL/min (>60); POTASSIUM 5.4 mmol/L (3.5-5.1)
[2016-10-09 05:44] LABS: DIFF IND NO
[2016-10-10 06:27] LABS: BASOPHIL% 0.6 % (0-2.5); EOSINOPHIL# 0.1 X10e3 (0-0.7); EOSINOPHIL% 1.2 % (0.0-7.0); HEMATOCRIT 30.1 % (38.0-50.0); HEMOGLOBIN 9.5 gm/dL (13.0-16.0); LYMPHOCYTE# 1.3 X10e3 (1.0-3.5); LYMPHOCYTE% 18.8 % (17.0-45.0); MEAN CELL VOLUME 95.1 FL (83-96); MEAN CORPUSCULAR HEMOGLOBIN 29.9 PG (28-34); MEAN CORPUSCULAR HGB CONC 31.5 g/dL (30-36); MEAN PLATELET VOLUME 8.3 FL (6.5-11.5); MONOCYTE# 0.9 X10e3 (0-1.0); NEUTROPHIL# 4.4 X10e3 (1.5-7.1); NEUTROPHIL% 65.4 % (40-75); PLATELET COUNT 226 X10e3 (140-420); RED BLOOD COUNT 3.16 X10e (3.90-5.60); WHITE BLOOD COUNT 6.8 X10e3 (4.0-10.5)
[2016-10-10 06:33] LABS: DIFF IND NO
[2016-10-10 06:37] LABS: ALBUMIN SERUM 2.5 g/dL (3.5-5.0); BILIRUBIN,TOTAL 0.5 mg/dL (0.2-2.0); CALCIUM SERUM 8.9 mg/dL (8.4-10.2); CREATININE SERUM 0.6 mg/dL (0.6-1.4); GLOM FILT RATE Estimated 92.4 mL/min (>60); POTASSIUM 4.7 mmol/L (3.5-5.1); PROTEIN TOTAL SERUM 6.9 g/dL (6.0-8.3)
[2016-10-11 05:48] LABS: BASOPHIL# 0.1 X10e3 (0-0.3); BASOPHIL% 0.7 % (0-2.5); EOSINOPHIL# 0.1 X10e3 (0-0.7); EOSINOPHIL% 1.4 % (0.0-7.0); HEMATOCRIT 27.1 % (38.0-50.0); HEMOGLOBIN 8.7 gm/dL (13.0-16.0); LYMPHOCYTE# 1.4 X10e3 (1.0-3.5); LYMPHOCYTE% 20.1 % (17.0-45.0); MEAN CELL VOLUME 92.9 FL (83-96); MEAN CORPUSCULAR HEMOGLOBIN 29.9 PG (28-34); MEAN CORPUSCULAR HGB CONC 32.2 g/dL (30-36); MEAN PLATELET VOLUME 7.8 FL (6.5-11.5); MONOCYTE% 13.7 % (3.0-12.0); NEUTROPHIL# 4.5 X10e3 (1.5-7.1); NEUTROPHIL% 64.1 % (40-75); PLATELET COUNT 233 X10e3 (140-420); RED BLOOD COUNT 2.92 X10e (3.90-5.60); RED CELL DISTRIBUTION WIDTH 15.4 % (11.0-15.5); WHITE BLOOD COUNT 7.1 X10e3 (4.0-10.5)
[2016-10-11 05:49] LABS: DIFF IND NO
[2016-10-12 05:42] LABS: BASOPHIL% 0.4 % (0-2.5); EOSINOPHIL# 0.1 X10e3 (0-0.7); EOSINOPHIL% 1.1 % (0.0-7.0); HEMATOCRIT 26.4 % (38.0-50.0); HEMOGLOBIN 8.7 gm/dL (13.0-16.0); LYMPHOCYTE# 1.4 X10e3 (1.0-3.5); LYMPHOCYTE% 19.6 % (17.0-45.0); MEAN CELL VOLUME 92.4 FL (83-96); MEAN CORPUSCULAR HEMOGLOBIN 30.6 PG (28-34); MEAN CORPUSCULAR HGB CONC 33.1 g/dL (30-36); MONOCYTE% 13.9 % (3.0-12.0); NEUTROPHIL# 4.5 X10e3 (1.5-7.1); PLATELET COUNT 229 X10e3 (140-420); RED BLOOD COUNT 2.85 X10e (3.90-5.60); RED CELL DISTRIBUTION WIDTH 15.3 % (11.0-15.5)
[2016-10-12 05:46] LABS: DIFF IND NO
[2016-10-12 06:36] LABS: CALCIUM SERUM 9.1 mg/dL (8.4-10.2); CREATININE SERUM 0.7 mg/dL (0.6-1.4); GLOM FILT RATE Estimated 86.7 mL/min (>60)
== END 2016-10-13 17:00 | DRG 871 ==
LOC: CED 16:01 → C3A PCU 20:00 → CEDOF 20:00 → C3A PCU 20:00 → CED 20:00 → CICCU3 20:16 → CEDOF 20:16 → C3A PCU 20:16 → CEDOF 21:02 → C5B 21:02 → CICCU3 10-08 00:10 → C3A PCU 10-10 16:24 → CEDOF 10-11 13:00 → CICCU3 10-11 13:00 → C5B 10-11 13:00 → C3A PCU 10-11 13:00
PROVIDERS: Emergency Medicine; Internal Medicine Cardiovascular Disease; Physician Assistant Medical
PROC: B246YZZ Ultrasonography of Right and Left Heart using Other Contrast (ICD-10-PCS; principal; 2016-10-11)
PROC: 02HV33Z Insertion of Infusion Device into Superior Vena Cava, Percutaneous Approach (ICD-10-PCS; 2016-10-13)
PROC: B518YZA Fluoroscopy of Superior Vena Cava using Other Contrast, Guidance (ICD-10-PCS; 2016-10-13)
PROC: B548ZZA Ultrasonography of Superior Vena Cava, Guidance (ICD-10-PCS; 2016-10-13)
DX: A41.51 Sepsis due to Escherichia coli [E. coli] (principal); I50.23 Acute on chronic systolic (congestive) heart failure; J96.01 Acute respiratory failure with hypoxia; I27.2 Other secondary pulmonary hypertension; T17.900A Unspecified foreign body in respiratory tract, part unspecified causing asphyxiation, initial encounter; I11.0 Hypertensive heart disease with heart failure; N39.0 Urinary tract infection, site not specified; D64.9 Anemia, unspecified; Z95.1 Presence of aortocoronary bypass graft; I25.10 Atherosclerotic heart disease of native coronary artery without angina pectoris; I48.0 Paroxysmal atrial fibrillation; Z86.73 Personal history of transient ischemic attack (TIA), and cerebral infarction without residual deficits; G40.909 Epilepsy, unspecified, not intractable, without status epilepticus; E78.5 Hyperlipidemia, unspecified; Z79.01 Long term (current) use of anticoagulants; Z79.82 Long term (current) use of aspirin; I08.1 Rheumatic disorders of both mitral and tricuspid valves; Z87.891 Personal history of nicotine dependence; I25.5 Ischemic cardiomyopathy; Z66 Do not resuscitate; B96.20 Unspecified Escherichia coli [E. coli] as the cause of diseases classified elsewhere
CPT/HCPCS: 36415; 71010; 76937; 77001; 80048; 80053; 80076; 81003; 82274; 82308; 82553; 83605; 83880; 84484; 85025; 85610; 85730; 87040; 87077; 87086; 87088; 87186; 92526; 92610; 93005; 93306; 94760; 94761; 99285; C1751; G8996-GN; G8997-GN; G8998-GN; J0696; J1642; J1940; J2185; J2543; J3260

== ENCOUNTER 2016-10-23 16:47 | Inpatient (IN) | payer MEDICARE, BC, OTHER ==
[~2016-10-23] VITALS: Ht 165.1 cm; Wt 56.6 kg
--- NOTE | ~2016-10-23 | FU ---
[facility] Nutrition Therapy DATE: 10/27/16 Patient: KELLI Araya CATIE Physician: WEST Address: [facility] Room/Bed: [address] [place] [address], Zip: [place] [address] Admit Date: 10/23/16 Date of : 31 Height: 5 5 Weight: 124 56.6 NUTRITION MONITORING/FOLLOW-UP: Reason: PT SEEN FOR FOLLOW-UP DX: UROSEPSIS Anthropometrics: 5'5", WT: 124# (56 KG), BMI: 20.6 Labs: GLU: 146, ALB: 2.2, PHOS: 1.7 Meds: FUROSEMIDE, PROTONIX, NACL, KEPPRA I&O's: 575/886. 1 BM NOTED Skin: SCATTERED BRUISES BUE Estimated Nutrition Needs: [phone] KCAL 62-74 G PRO Assessment: CHART REVIEWED AND EVENTS NOTED. PT SEEN FOR FOLLOW-UP. PT NON-COMMUNICATIVE AT TIME OF VISIT. PT HAD LUNCH TRAY AT BEDSIDE-TRAY HAS NOT BEEN TOUCHED YET. PER RN, PT A "FEEDER" AND REQUIRES ASSISTANCE W/PO INTAKE. RN STATES PT TO HAVE GOOD PO INTAKE ONCE BEING FED. RD ENCOURAGED SUPPLEMENT INTAKE, PT NODDED HIS HEAD TO ENSURE PUDDING BID, RD RD TO ORDER. PT NOT APPROPRIATE FOR DIET EDUCATION. RD TO REMAIN AVAILABLE. PER CHART, [facility] TO FOLLOW POST-DISCHARGE. Dx: INADEQUATE PROTEIN-ENERGY INTAKE R/T CLINICAL CONDITION, VENTILATOR DEPENDENCE AEB NPO STATUS.-RESOLVED NEW Dx: ALTERED NUTRIENT UTILIZATION R/T CURRENT CONDITION AEB NEED FOR TEXTURIZED DIET. Intervention: 1. MECHANICAL GROUND DIET + HONEY THICK LIQUID 2. ENSURE PUDDING BID Monitoring, Evaluation and Goals: 1. ENTERAL NUTRITION; INITIATE IF APPROPRIATE AND MEDICALLY FEASIBLE-NOT MEASURED 2. IMPROVE LABS; NA+, K+, PHOS-IN PROGRESS (NA+ ELEVATED, NO CURRENT PHOS LEVEL SINCE 10/24/16) 3. WEIGHT; PREVENT WEIGHT LOSS, PROMOTE WEIGHT MAINTENANCE-IN PROGRESS NEW GOALS: 1. ORAL INTAKE; CONSUME/TOLERATE >50% OF MEALS AND SUPPLEMENTS 2. IMPROVE LABS; NA+, K+, PHOS 3. WEIGHTS; PREVENT WEIGHT LOSS, PROMOTE WEIGHT MAINTENANCE [facility] Nutrition Therapy DATE: 10/27/16 Patient: KELLI HADDAD Physician: WEST Address: [facility] Room/Bed: [address] [place] [address], Zip: [place] [address] Admit Date: 10/23/16 Date of : 31 Height: 5 5 Weight: 124 56.6 MONITOR: -PO INTAKE/APPETITE -WEIGHTS -SUPPLEMENT INTAKE Recommendations: 1. PLEASE ORDER CHOCOLATE ENSURE PUDDING BID W/MEALS FOR SUPPLEMENTAL NUTRITION 2. CONTINUE CURRENT DIET ORDER PER BOILER CONTROL ROOM OPERATOR. CONTINUE TO PROVIDE ASSISTANCE W/PO INTAKE AND ORDERING MEALS NEEDED RD WILL F/U PER PROTOCOL PT IS MODERATELY COMPROMISED Respectfully, [f rep inv trans, RD, LD Food [facility] Nutrition[facility] cc: client file
--- NOTE | ~2016-10-23 | EKG ---
PATIENT: KELLI HADDAD UNIT #: [id number] Ventricular Rate: 71 BPM Atrial Rate: 258 BPM QRS Duration: 88 ms Q-T Interval: 420 ms QTC Calculation(Bezet): 456 ms Calculated R Springer: 12 degrees Calculated T Springer: -32 degrees Diagnosis Line: Atrial fibrillation Diagnosis Line: Electronic ventricular pacemaker Diagnosis Line: Low voltage QRS Diagnosis Line: ST and T wave abnormality, consider inferior Diagnosis Line: ischemia Diagnosis Line: ST and T wave abnormality, consider anterolateral Diagnosis Line: ischemia Diagnosis Line: Abnormal ECG Diagnosis Line: When compared with ECG of 06-OCT-2016 17:14, Diagnosis Line: Current undetermined rhythm precludes rhythm Diagnosis Line: comparison, needs review Diagnosis Line: Confirmed by BING WEST MD ([id number]) on 10/23/2016 Diagnosis Line: 10:19:02 PM INTERPRETING MD: JENNA WHITE
--- NOTE | ~2016-10-23 | HP ---
Unit #: [id number] #: [id number] Patient: KELLI HADDAD [id number] [place] [id number] [facility]. [place], [place] [address] [id number] I MR#: [id number] NAME: KELLI HADDAD ROOM: [facility] Age: 85 Sex: M Admission Date: 10/23/2016 : 1930 Attending Physician: Henok Null M.D. Primary Care Physician: Neftali Pro M.D. HISTORY AND PHYSICAL CHIEF COMPLAINT Low blood pressure and altered mental status. HISTORY OF PRESENT ILLNESS Mr. Kelli Haddad is an 85-year-old male with multiple medical problem, was recently discharged from the hospital on 10/13/2016 after being treated for E. coli bacteria, UTI and acute congestive heart failure. Patient was sent to [facility]. Patient returns with a finding of altered mental status and low saturation. Patient was found to be in acute hypoxic respiratory failure, was intubated, and was admitted to [facility] in ER. Patient also had decreased urine output but what I understand he was unresponsive. The patient is intubated, is being evaluated in room 22 ICU. Most of the history has been taken from previous note and from ER note sent from past medical history. PAST MEDICAL HISTORY 1. Hypertension. 2. Hyperlipidemia. 3. Coronary artery disease, previous CABG in 2001. 4. Patient has a systolic congestive heart failure with ejection fraction of 10% to 15%. 5. Permanent pacemaker secondary to sick sinus syndrome in 2003. 6. Paroxysmal atrial fibrillation. 7. History of CVA. 8. History of seizure disorder. 9. History of chronic aspiration. ALLERGIES No known drug allergies. SOCIAL HISTORY The patient resides in a detention. He is a reformed tobacco user. He is fairly sedentary. 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 FAMILY HISTORY Noncontributory. REVIEW OF SYSTEMS Not obtainable at this time. HOME MEDICATIONS As per med rec, which is pantoprazole 40 mg daily; aspirin 81 mg daily; Lasix 20 mg daily; potassium 20 mEq daily; MiraLAX 1 pack daily; Unit #: [id number] #: [id number] Patient: KELLI HADDAD 325 mg 3 times a day; Coreg 3.125 mg twice a day; Keppra 750 mg twice a day; Xarelto 15 mg daily; Flomax 0.4 mg at bedtime; Tylenol 650 q.6 p.r.n. PHYSICAL EXAMINATION The patient has been intubated and is being followed by Dr. Hickey, oil pit attendant. VITAL SIGNS: Blood pressure is 116/46, respiratory rate 60, pulse is 71, temperature 98.8, oxygen saturation is 100%. HEENT: Head is normocephalic. NECK: Supple. CHEST: Decreased air entry, rhonchi are present, more on the right lower chest. HEART: S1 and S2 positive. Murmur is heard. Pacemaker in place. ABDOMEN: Soft, nontender. Bowel sounds are positive. EXTREMITIES: Negative edema. SISAL PICKER: Patient is on ventilator. DIAGNOSTIC STUDIES LABORATORY STUDIES: WBC 8.0, hemoglobin 9.2, hematocrit 28.9, platelet count of 251. Troponin is less than 0.05. Lactic acid 0.7, sodium 141, potassium 4.7, chloride 104, BUN 25, creatinine 0.5. Urinalysis shows 2+ bacteria. BNP 540. ASSESSMENT AND PLAN The patient is being admitted to ICU with: 1. Acute hypoxic respiratory failure on ventilator support at this time. 2. Toxic metabolic encephalopathy. 3. Acute systolic congestive heart failure with ejection fraction of 10% to 15%. 4. Urinary tract infection. 5. Possible aspiration pneumonia. 6. History of paroxysmal atrial fibrillation. 7. Seizure disorder. 8. History of cerebrovascular accident. PLAN 1. Admit to ICU. 2. Dr. Hickey has been consulted for vent management. 3. Lovenox is being started 1 mg/kg body weight subcu q.12. 4. Xarelto is on hold. 5. Lasix 20 mg IV will be given. 6. Attavar will be consulted. 7. IV antibiotic is being started. 8. Please refer to progress note for further orders and home medications have been reviewed. 9. Code status is DNR. Dictated by Nikhil Jara TD: 10/24/2016 10:13 JOB #: [id number] Unit #: [id number] #: [id number] Patient: KELLI HADDAD HISTORY AND PHYSICAL Page 1 of 1 X Merle Guaman MD HISTORY AND PHYSICAL
--- NOTE | ~2016-10-23 | CO ---
Unit #: [id number] #: [id number] Patient: KELLI HADDAD [id number] [address] [address] [id number] I MR#: [id number] NAME: KELLI HADDAD. ROOM: [facility] Age: 85 Sex: M Admission Date: 10/23/2016 : 1930 Attending Physician: Henok Null M.D. Primary Care Physician: Neftali Pro M.D. Consultation Date: 10/24/2016 CONSULTATION REPORT REASON FOR CONSULT ICU management and vent management. HISTORY OF PRESENT ILLNESS This is a very pleasant 85-year-old male who is well known to our service from multiple previous admission with past medical history significant for systolic congestive heart failure with ejection fraction of 10-15%, coronary artery disease, hypertension, hyperlipidemia, multiple strokes, who presented to the emergency room from the [facility] with low blood pressure and altered mental status. The patient was just discharged from the hospital a few weeks ago after an admission for ESBL bacteremia. Due to altered mental status, patient was intubated in the emergency room. His workup is consistent with possible aspiration pneumonia and urosepsis. Patient is hypotensive on Levophed. PAST MEDICAL HISTORY 1. Coronary artery disease. 2. Paroxysmal atrial fibrillation. 3. Chronic anemia. 4. Systolic congestive heart failure with ejection fraction of 15-20%. 5. Cerebrovascular accident. 6. Seizure disorder. 7. Hypertension. 8. Hyperlipidemia. PAST SURGICAL HISTORY 1. CABG. 2. Mitral valve angioplasty. 3. Pacemaker placement. FAMILY HISTORY Noncontributory. ALLERGIES No known drug allergies. SOCIAL HISTORY The patient is a [facility] resident. He is an ex-smoker. No history of alcohol or drug abuse. Unit #: [id number] #: [id number] Patient: KELLI HADDAD HOME MEDICATIONS 1. Aspirin. 2. Potassium. 3. Vitamin B12. 4. Protonix. 5. MiraLAX. 6. Lasix. 7. Ferrous sulfate. 8. Coreg. 9. Keppra. 10. Xarelto. 11. Remeron. 12. Flomax. 13. Tylenol. 14. Dulcolax. REVIEW OF SYSTEMS Unable to obtain. REVIEW OF SYSTEMS Twelve point review of systems were obtained and were negative except for what was mentioned in the HPI. PHYSICAL EXAM GENERAL: The patient is in no acute distress at this point. He is intubated and appears stable and (1) management. HEENT: Atraumatic, normocephalic. PERRLA, EOMI. NECK: Supple. No JVD, no lymphadenopathy. CHEST: Fine rhonchi at the right lower base. HEART: S1, S2. Systolic murmur. ABDOMEN: Soft, nontender. Bowel sound is positive. No hepatosplenomegaly. EXTREMITIES: No edema or cyanosis. SKIN: No rashes. 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 He is no following commands. However, his baseline is nonverbal with right sided weakness. LABS AND OTHER TESTS Creatinine 0.6, sodium 146, white blood count 8.7, hemoglobin 8.0. ASSESSMENT 1. Acute hypoxic respiratory failure. 2. Toxic metabolic encephalopathy. 3. Urosepsis. 4. Possible aspiration pneumonia. 5. Congestive heart failure. 6. Chronic anemia. 7. Multiple CVAs. PLAN 1. Patient is critical on the vent. Will assess for spontaneous breathing trial and possible extubation as soon as he is appropriate. 2. Chest x-ray is concerning for pulmonary edema plus/minus aspiration pneumonia. 3. Will try to wean pressures off as tolerated. He received some IV fluid in the emergency room. However, now we may need to diurese him given his low ejection fraction and chest x-ray finding. 4. Meropenem for possible ESBL sepsis again. Unit #: [id number] #: [id number] Patient: KELLI HADDAD 5. Keep NPO for now but will place a Dobbhoff tube if needed. 6. Continue Lovenox real time analyst dose and change to Xarelto once he has an oral access. Critical care time spent on this patient was 32 minutes. Dictated by... Nikhil Dominique TD: 10/24/2016 08:49 JOB #: [id number] CONSULTATION REPORT Page 1 of 1 X GALINA DELUNA MD X CONSULTATION REPORT
--- NOTE | ~2016-10-23 | A ---
[facility] Nutrition Therapy DATE: 10/24/16 Patient: KELLI HADDAD Physician: WEST Address: [facility] Room/Bed: [address], Zip: [place] [address] Admit Date: 10/23/16 Date of : [birth year] Height: 5 5 Weight: 136 62 NUTRITIONAL ASSESSMENT: REASON: NPO status in ICU 85 yo male admitted for urosepsis PMH: Afib, stroke, dysphagia, aphasic, CHF, CAD, CABG, pacemaker placement, HLD, HTN, anemia, EF 10-15%, seizure disorder Anthropometrics: Ht: 5'5" Wt: 62 kg BMI: 22.7 Labs: Na+ 146 K+ 3.4 Alb 2.2 Phos 1.7 Meds: Levophed, MgSO4, KCl, NaCl, protonix, versed, D5% + levophed, furosemide I/O & Bowel function: 299/510, No documented BM since admission Skin Integrity: Scattered bruising BUE Edema: None noted Estimated Nutrition Needs: 2560-2865 kcals (28-32 kcals/kg) 62-74 grams protein (1.0-1.2 grams/kg) Fluids per MD Diet: NPO Assessment: Chart reviewed, events noted. 85 yo male admitted for urosepsis with significant cardiovascular history including stroke with dysphagia. Pt is currently intubated and sedated in the ICU on pressor support. RD at [facility] last assessed the pt during a previous admission on 09/12/16. Pt required a video swallow evaluation during that admission. Of note, the was on a mechanical soft diet with nectar thick liquids at [facility] prior to this admission. Hypernatremia and low phos noted. Pt failed wean today and does not have enteral access at this time per RN report. Please see recommendations below. Dx: Inadequate protein-energy intake RT clinical condition, ventilator dependence AEB NPO status. Intervention: 1. NPO 2. Enteral nutrition [facility] Therapy DATE: 10/24/16 Patient: KELLI HADDAD Physician: WEST Address: [facility] Room/Bed: [address], Zip: [place] [address] Admit Date: 10/23/16 Date of : [birth year] Height: 5 5 Weight: 136 62 Monitoring, Evaluation and Goals: 1. Enteral nutrition; initiate if appropriate and medically feasible 2. Improve labs; Na+, K+, Phos 3. Weight; prevent weight loss, promote weight maintenance Recommendations: 1. Replete electrolytes to WNL PRN (K+, phos low). 2. If deemed appropriate per MD discretion and based on the pt's goals of care, consider placing a DHT and initiating enteral nutrition with Jevity 1.5 @ 20 mL/hr. Increase by 10 mL q 8 hrs as tolerated to goal of 50 mL/hr to provide: 1800 kcals/ 77 grams protein/ 912 mL free H20 -Add 200 mL free H20 flushes q 8 hrs or per MD orders. Hypernatremia and CHF noted. 3. 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 Pt has a h/o dysphagia on modified consistency diet at the DC. No further dietary restrictions recommend until PO intake can be further assessed. Pt is at moderate-severe nutritional risk. RD will follow hospital course per protocol. Respectfully, MAC KOHLER RD, LD Food and Nutritional Services [facility] cc: client file
--- NOTE | ~2016-10-23 | CT71 ---
[facility] A Service of [facility] & [facility] RADIOLOGY TEXT RESULTS PATIENT: KELLI HADDAD LOCATION: [address] : [birth year] UNIT #: [id number] AGE: [address]: Merle Guaman MD SEX: M ORDER DR: [id number] [facility] [address] [place], [place] [address] [id number] I MR#: [id number] Acc #: [id number] NAME: KELLI HADDAD. : 1930 SEX: M STUDY DATE/TIME: 10/23/2016 19:56 UNIT: [facility] ROOM: [facility] STUDY DESCRIPTION: CT Head Wo Contrast Attending Physician: Henok Null M.D. Ordering Physician: Herb Waller M.D. Primary Care Physician: Neftali Pro M.D. MEDICAL IMAGING REPORT This report is preliminary unless electronic signature is present EXAM Head CT without contrast, 10/23/2016. HISTORY Confusion and decreased level of consciousness beginning today. Hypertension. FINDINGS Multiple axial images were obtained from the skull base to vertex without intravenous contrast administration. This CT exam was performed with one or more of the following radiation dose reduction techniques: automatic exposure control, adjustment of mA and/or kV according to patient size, and iterative reconstruction. There is generalized enlargement of the ventricles and sulci characteristic of atrophy and there is periventricular microvascular white matter ischemic change. There is an old infarct with encephalomalacia in the left middle cerebral artery distribution. There is no midline shift. There is no mass or mass effect, hemorrhage or acute infarct. The visualized paranasal sinuses are clear. IMPRESSION Generalized atrophy and periventricular microvascular white matter ischemic change. Old infarct with encephalomalacia in the left middle cerebral artery distribution. No acute intracranial abnormality. Dictated by... Arsalan Bryant M.D. THIS IS AN ELECTRONICALLY VERIFIED REPORT Arsalan Bryant M.D. at 10/24/2016 2:16 PM KRT/samy TD: 10/24/2016 10:13 STS. [facility] A Service of [facility] & [facility] RADIOLOGY TEXT RESULTS PATIENT: KELLI HADDAD LOCATION: [place] [address]22 : 31 UNIT #: [id number] AGE: [address]: Merle Guaman MD SEX: M ORDER DR: JOB #: [id number] MEDICAL IMAGING REPORT Page 1 of 1 COPY
--- NOTE | ~2016-10-23 | CR72 ---
[facility] A Service of [facility] & [facility] RADIOLOGY TEXT RESULTS PATIENT: KELLI HADDAD LOCATION: [address] : [birth year] UNIT #: [id number] AGE: [address]: Merle Guaman MD SEX: M ORDER DR: [id number] [facility] [address] [place], [place] [address] [id number] I MR#: [id number] Acc #: [id number] NAME: KELLI HADDAD. : 1930 SEX: M STUDY DATE/TIME: 10/24/2016 5:49 UNIT: [facility] ROOM: [facility] STUDY DESCRIPTION: CR Chest Single View Portable Attending Physician: Merle Guaman M.D. Ordering Physician: Kanwal Hickey M.D. Primary Care Physician: Neftali Pro M.D. MEDICAL IMAGING REPORT This report is preliminary unless electronic signature is present EXAM Portable chest, 2 views, 10/24/2016 at 05:49. COMPARISON 10/23/2016 CLINICAL HISTORY Respiratory failure since 10/23/2016. FINDINGS Endotracheal tube 4 cm above the ysabel. Small right effusion. Mild cardiomegaly. Vascular congestion, but no pneumothorax and no new infiltrate. Dictated by... Manny Salgado M.D. THIS IS AN ELECTRONICALLY VERIFIED REPORT Manny Salgado M.D. at 10/26/2016 5:01 PM TEV/salena TD: 10/24/2016 13:11 JOB #: [id number] MEDICAL IMAGING REPORT Page 1 of 1 COPY
--- NOTE | ~2016-10-23 | DS ---
Unit #: [id number] #: [id number] Patient: KELLI HADDAD [id number] [address] [place], [place] [address] [id number] I MR#: [id number] NAME: KELLI HADDAD. ROOM: 320 Age: 85 Sex: M Admission Date: 10/23/2016 : 1930 Discharge Date: Attending Physician: Merle Guaman M.D. Primary Care Physician: Neftali Pro M.D. DISCHARGE SUMMARY DISCHARGE DIAGNOSES 1. Status post acute hypoxemic respiratory failure. 2. Altered mental status. 3. Toxic-metabolic encephalopathy. 4. Questionable urosepsis. 5. Aspiration pneumonia. 6. Congestive heart failure. 7. Paroxysmal atrial fibrillation. 8. History of cerebrovascular accident. 9. Anemia of chronic disease. CONSULTANTS ON THIS HOSPITAL STAY 1. Dr. Ying, cardiology. 2. Dr. Kanwal Hickey, pulmonary. LABS AND DIAGNOSTICS AND PROCEDURES ON THIS HOSPITAL STAY 1. Chest x-ray on admission: Bilateral infiltrates. Small bilateral pleural effusion. 2. CT head: Generalized atrophy. Old infarct. No acute findings. 3. Repeat chest x-ray: Vascular congestion. No pneumothorax. No new infiltrates. 4. Blood culture negative. 5. Sputum culture unremarkable. 6. Urine culture yeast. HISTORY OF PRESENT HOSPITAL STAY Please refer to H and P done by my colleague for initial presentation on this gentleman. ACTIVE PROBLEMS AND DIAGNOSES Acute hypoxemic respiratory failure: Patient was intubated, admitted to ICU, was managed with mechanical ventilation, was followed by Pulmonary, was treated with the empiric IV antibiotic along with the bronchodilators, was successfully extubated. Currently stable. No signs of acute respiratory distress. Stable from a pulmonary standpoint to be discharged. Aspiration pneumonia: Was treated with the IV Zosyn. Will switch him to Augmentin for seven more days. Altered mental status: Status post negative CT. Most likely secondary to toxic-metabolic encephalopathy. Questionable urosepsis: Urine only grows yeast. Currently stable hemodynamics. Slightly hypertensive. Unit #: [id number] #: [id number] Patient: KELLI HADDAD History of CHF and paroxysmal afib: Status post cardiology evaluation. Continue anticoagulation with Xarelto. Off of Coreg right now secondary to hypertension. History of CVA: Continue baby aspirin. Anemia of chronic disease. Discharge hemoglobin and hematocrit 8.0 and 24.5. Code status: Patient was made a DNR per state and he is status post evaluation with [facility]. He will be discharged back jail with [facility] to follow there. History of seizure disorder: Continue Keppra. DISCHARGE MEDICATIONS 1. Tylenol p.r.n. 2. Xarelto 15 mg daily. 3. Keppra 750 p.o. b.i.d. 4. Bisacodyl 5 mg p.o. daily. 5. MiraLAX one packet daily. 6. Furosemide 20 mg daily. 7. Midodrine 5 mg p.o. t.i.d. 8. Ferrous sulfate t.i.d. 9. Aspirin 81 mg daily. 10. Protonix 40 mg daily. 11. Potassium chloride 20 mEq daily. 12. Augmentin 875 p.o. b.i.d. DIET Diet per speech evaluation mechanical soft, ground meats, no mixed consistencies, honey-thickened liquids. Dictated by... Cristopher Nagy M.D. OC/willard TD: 10/27/2016 22:06 JOB #: [id number] DISCHARGE SUMMARY Page 1 of 1 X Cristopher Nagy MD X DISCHARGE SUMMARY
--- NOTE | ~2016-10-23 | CR72 ---
[facility] A Service of [facility] & [facility] RADIOLOGY TEXT RESULTS PATIENT: KELLI HADDAD LOCATION: [address] : 31 UNIT #: [id number] AGE: [address]: Merle Guaman MD SEX: M ORDER DR: [id number] [facility] [address] [place], [place] [address] [id number] I MR#: [id number] Acc #: [id number] NAME: KELLI HADDAD. : 1930 SEX: M STUDY DATE/TIME: 10/23/2016 18:06 UNIT: [facility] ROOM: [facility] STUDY DESCRIPTION: CR Chest Single View Portable Attending Physician: Henok Null M.D. Ordering Physician: Herb Waller M.D. Primary Care Physician: Neftali Pro M.D. MEDICAL IMAGING REPORT This report is preliminary unless electronic signature is present EXAM Portable chest 10/23/2016. HISTORY Respiratory failure status post endotracheal tube placement today, short of breath. FINDINGS The heart is enlarged but stable compared with 10/06/2016 ,status post median sternotomy and valvular replacement. Endotracheal tube has been inserted with the tip approximately 3 cm above the ysabel. Cardiac pacemaker is unchanged. Bilateral infiltrates are unchanged compared with 10/06/2016. Small bilateral pleural effusions. No pneumothorax. IMPRESSION Interval placement of endotracheal tube with the tip 3.5 cm above the ysabel compared with 10/06/2016. No other change. Dictated by... Arsalan Bryant M.D. THIS IS AN ELECTRONICALLY VERIFIED REPORT Arsalan Bryant M.D. at 10/24/2016 2:15 PM KRT/gz TD: 10/24/2016 09:26 JOB #: [id number] MEDICAL IMAGING REPORT Page 1 of 1 COPY
[~2016-10-23 16:47] MED LIST changes: +ASPIRIN EC81 M1 PO; +DULCOLAX10 MG PR; +FERROUS SULFAT324 MG PO; +K-DUR20 ME2 PO; +KEPPRA750 M1 PO; +MIRALAX17 G2 PO; +MIRTAZAPINE7.5 MG PO; +VITAMIN B122500 MCG PO
[2016-10-23] MEDS ORDERED: PANTOPRAZOLE SO40 MG PO (17:46)
[2016-10-23] MEDS ORDERED: ASPIRIN81 M2 PO (17:46)
[2016-10-23] MEDS ORDERED: MIRALAX17 GM PO (17:47)
[2016-10-23] MEDS ORDERED: KCL PO (17:47)
[2016-10-23] MEDS ORDERED: FERRO-TIME325 MG PO (17:47)
[2016-10-23] MEDS ORDERED: COREG3.125 MG PO (17:47)
[2016-10-23] MEDS ORDERED: LASIX20 MG PO (17:47)
[2016-10-23] MEDS ORDERED: KEPPRA XR750 MG PO (17:48)
[2016-10-23] MEDS ORDERED: FLOMAX0.4 M1 PO (17:48)
[2016-10-23] MEDS ORDERED: FLORASTORKIDS250 MG PO (17:48)
[2016-10-23] MEDS ORDERED: TYL325 PO (17:48)
[2016-10-23] MEDS ORDERED: XARELTO15 MG PO (17:48)
[2016-10-23] MEDS ORDERED: GENTLE LAXATIVE5 M2 PO (17:49)
[2016-10-23 18:04] LABS: BASOPHIL% 0.4 % (0-2.5); EOSINOPHIL% 0.3 % (0.0-7.0); HEMATOCRIT 28.9 % (38.0-50.0); HEMOGLOBIN 9.2 gm/dL (13.0-16.0); LYMPHOCYTE# 1.5 X10e3 (1.0-3.5); MEAN CELL VOLUME 94.9 FL (83-96); MEAN CORPUSCULAR HEMOGLOBIN 30.2 PG (28-34); MEAN CORPUSCULAR HGB CONC 31.9 g/dL (30-36); MEAN PLATELET VOLUME 8.5 FL (6.5-11.5); MONOCYTE% 12.9 % (3.0-12.0); NEUTROPHIL# 5.4 X10e3 (1.5-7.1); NEUTROPHIL% 67.4 % (40-75); PLATELET COUNT 251 X10e3 (140-420); RED BLOOD COUNT 3.05 X10e (3.90-5.60); RED CELL DISTRIBUTION WIDTH 16.5 % (11.0-15.5)
[2016-10-23 18:06] LABS: DIFF IND NO
[2016-10-23 18:12] LABS: URINE SOURCE CLEAN CATCH
[2016-10-23 18:23] LABS: POC - CKMB 2.5 ng/mL (0.0-7.9); POC - TROPONIN <0.05 ng/mL (<=0.05)
[2016-10-23 18:24] LABS: INR 1.2; PROTHROMBIN TIME (PATIENT) 12.6 SECONDS (10.0-11.7)
[2016-10-23 18:34] LABS: ALBUMIN SERUM 2.5 g/dL (3.5-5.0); BILIRUBIN, DIRECT 0.1 mg/dL (0.0-0.2); BILIRUBIN,INDIRECT 0.1 mg/dL (0.0-0.9); BILIRUBIN,TOTAL 0.2 mg/dL (0.2-2.0); BUN/CREATININE RATIO 31.25; CALCIUM SERUM 9.3 mg/dL (8.4-10.2); CREATININE SERUM 0.8 mg/dL (0.6-1.4); GLOM FILT RATE Estimated 82.1 mL/min (>60); PHOSPHOROUS 4.5 mg/dL (2.5-4.6); POTASSIUM 4.7 mmol/L (3.5-5.1); PROTEIN TOTAL SERUM 7.5 g/dL (6.0-8.3)
[2016-10-23 18:53] LABS: ARTERIAL BLD GAS O2 SATURATION 98.2 % (90.0-100.0); ARTERIAL BLOOD GAS CARBOXY HB 0.8 %sat (0.0-9.0); ARTERIAL BLOOD GAS HCO3 33.8 mmol/L; ARTERIAL BLOOD GAS MET HB 1.3 %sat (0.0-2.0); ARTERIAL BLOOD GAS PCO2 43.6 mmHg (35.0-45.0); ARTERIAL BLOOD GAS pH 7.497 (7.350-7.450)
[2016-10-23 18:54] LABS: ARTERIAL BLOOD GAS ART SITE LEFT FEMORAL; ARTERIAL BLOOD GAS DELIVERY VENT; ARTERIAL BLOOD GAS VENT MODE AC; ARTERIAL DRAW? YES
[2016-10-23 19:06] LABS: URINE APPEARANCE HAZY; URINE BILIRUBIN NEG (NEG); URINE BLOOD 4+ (NEG); URINE COLOR YELLOW; URINE GLUCOSE NORM (NORM); URINE KETONE NEG (NEG); URINE LEUKOCYTE ESTERASE 2+ (NEG); URINE NITRATE NEG (NEG); URINE PROTEIN 1+ (NEG); URINE SPECIFIC GRAVITY 1.025 (1.003-1.035); URINE UROBILINOGEN NORM (NORM)
[2016-10-23 19:18] LABS: CULTURE INDICATED? YES; URBCS1 AUWI INNUM /[HPF] (0-2); URINE BACTERIA AUWI 2+ (NEGATIVE); UWBCS1 AUWI 25-50 (0-5)
[2016-10-23 19:19] LABS: URINE YEAST PRESENT
[2016-10-24 04:29] LABS: ARTERIAL BLD GAS O2 SATURATION 99.1 % (90.0-100.0); ARTERIAL BLOOD GAS CARBOXY HB 0.6 %sat (0.0-9.0); ARTERIAL BLOOD GAS HCO3 30.3 mmol/L; ARTERIAL BLOOD GAS MET HB 0.5 %sat (0.0-2.0); ARTERIAL BLOOD GAS PCO2 31.8 mmHg (35.0-45.0); ARTERIAL BLOOD GAS pH 7.588 (7.350-7.450)
[2016-10-24 04:33] LABS: ARTERIAL BLOOD GAS ALLEN TEST NORMAL; ARTERIAL BLOOD GAS ART SITE RIGHT RADIAL; ARTERIAL BLOOD GAS DELIVERY VENT; ARTERIAL BLOOD GAS VENT MODE AC; ARTERIAL DRAW? YES
[2016-10-24 05:21] LABS: BASOPHIL% 0.4 % (0-2.5); EOSINOPHIL% 0.5 % (0.0-7.0); HEMATOCRIT 24.8 % (38.0-50.0); LYMPHOCYTE# 1.2 X10e3 (1.0-3.5); LYMPHOCYTE% 13.3 % (17.0-45.0); MEAN CELL VOLUME 93.4 FL (83-96); MEAN CORPUSCULAR HEMOGLOBIN 30.3 PG (28-34); MEAN CORPUSCULAR HGB CONC 32.4 g/dL (30-36); MEAN PLATELET VOLUME 8.4 FL (6.5-11.5); MONOCYTE% 11.2 % (3.0-12.0); NEUTROPHIL# 6.5 X10e3 (1.5-7.1); NEUTROPHIL% 74.6 % (40-75); PLATELET COUNT 213 X10e3 (140-420); RED BLOOD COUNT 2.65 X10e (3.90-5.60); WHITE BLOOD COUNT 8.7 X10e3 (4.0-10.5)
[2016-10-24 05:24] LABS: DIFF IND NO
[2016-10-24 06:43] LABS: ALBUMIN SERUM 2.2 g/dL (3.5-5.0); BILIRUBIN,TOTAL 0.5 mg/dL (0.2-2.0); CALCIUM SERUM 8.6 mg/dL (8.4-10.2); CREATININE SERUM 0.6 mg/dL (0.6-1.4); GLOM FILT RATE Estimated 92.4 mL/min (>60); MAGNESIUM 1.7 mg/dL (1.6-3.0); PHOSPHOROUS 1.7 mg/dL (2.5-4.6); POTASSIUM 3.4 mmol/L (3.5-5.1); PROTEIN TOTAL SERUM 6.2 g/dL (6.0-8.3)
[2016-10-25 04:26] LABS: ARTERIAL BLD GAS O2 SATURATION 98.4 % (90.0-100.0); ARTERIAL BLOOD GAS CARBOXY HB 0.9 %sat (0.0-9.0); ARTERIAL BLOOD GAS HCO3 28.8 mmol/L; ARTERIAL BLOOD GAS MET HB 0.7 %sat (0.0-2.0); ARTERIAL BLOOD GAS PCO2 35.8 mmHg (35.0-45.0); ARTERIAL BLOOD GAS pH 7.513 (7.350-7.450)
[2016-10-25 04:29] LABS: ARTERIAL BLOOD GAS ALLEN TEST NORMAL; ARTERIAL BLOOD GAS ART SITE LEFT RADIAL; ARTERIAL BLOOD GAS DELIVERY VENT; ARTERIAL BLOOD GAS VENT MODE AC; ARTERIAL DRAW? YES
[2016-10-25 06:14] LABS: BUN/CREATININE RATIO 22.85; CALCIUM SERUM 8.5 mg/dL (8.4-10.2); CREATININE SERUM 0.7 mg/dL (0.6-1.4); GLOM FILT RATE Estimated 86.7 mL/min (>60); POTASSIUM 3.7 mmol/L (3.5-5.1)
[2016-10-25 08:46] LABS: ARTERIAL BLD GAS O2 SATURATION 98.7 % (90.0-100.0); ARTERIAL BLOOD GAS ALLEN TEST NORMAL; ARTERIAL BLOOD GAS ART SITE LEFT RADIAL; ARTERIAL BLOOD GAS CARBOXY HB 0.7 %sat (0.0-9.0); ARTERIAL BLOOD GAS DELIVERY VENT; ARTERIAL BLOOD GAS HCO3 28.9 mmol/L; ARTERIAL BLOOD GAS MET HB 0.4 %sat (0.0-2.0); ARTERIAL BLOOD GAS PCO2 43.5 mmHg (35.0-45.0); ARTERIAL BLOOD GAS VENT MODE CPAP; ARTERIAL BLOOD GAS pH 7.431 (7.350-7.450); ARTERIAL DRAW? YES
[2016-10-26 05:07] LABS: BUN/CREATININE RATIO 21.42; CALCIUM SERUM 8.5 mg/dL (8.4-10.2); CREATININE SERUM 0.7 mg/dL (0.6-1.4); GLOM FILT RATE Estimated 86.7 mL/min (>60); POTASSIUM 3.7 mmol/L (3.5-5.1)
[2016-10-26 05:22] LABS: BASOPHIL% 0.6 % (0-2.5); EOSINOPHIL# 0.1 X10e3 (0-0.7); EOSINOPHIL% 2.1 % (0.0-7.0); HEMATOCRIT 24.9 % (38.0-50.0); HEMOGLOBIN 8.1 gm/dL (13.0-16.0); LYMPHOCYTE# 1.2 X10e3 (1.0-3.5); LYMPHOCYTE% 22.9 % (17.0-45.0); MEAN CELL VOLUME 94.7 FL (83-96); MEAN CORPUSCULAR HEMOGLOBIN 30.9 PG (28-34); MEAN CORPUSCULAR HGB CONC 32.6 g/dL (30-36); MEAN PLATELET VOLUME 9.1 FL (6.5-11.5); MONOCYTE# 0.6 X10e3 (0-1.0); MONOCYTE% 12.1 % (3.0-12.0); NEUTROPHIL# 3.2 X10e3 (1.5-7.1); NEUTROPHIL% 62.3 % (40-75); PLATELET COUNT 173 X10e3 (140-420); RED BLOOD COUNT 2.63 X10e (3.90-5.60); RED CELL DISTRIBUTION WIDTH 16.4 % (11.0-15.5); WHITE BLOOD COUNT 5.1 X10e3 (4.0-10.5)
[2016-10-26 05:24] LABS: DIFF IND NO
[2016-10-27 05:19] LABS: BASOPHIL% 0.5 % (0-2.5); EOSINOPHIL# 0.1 X10e3 (0-0.7); HEMATOCRIT 24.5 % (38.0-50.0); LYMPHOCYTE# 1.1 X10e3 (1.0-3.5); LYMPHOCYTE% 21.1 % (17.0-45.0); MEAN CORPUSCULAR HEMOGLOBIN 30.5 PG (28-34); MEAN CORPUSCULAR HGB CONC 32.5 g/dL (30-36); MEAN PLATELET VOLUME 8.7 FL (6.5-11.5); MONOCYTE# 0.6 X10e3 (0-1.0); MONOCYTE% 11.1 % (3.0-12.0); NEUTROPHIL# 3.5 X10e3 (1.5-7.1); NEUTROPHIL% 65.3 % (40-75); PLATELET COUNT 163 X10e3 (140-420); RED BLOOD COUNT 2.61 X10e (3.90-5.60); RED CELL DISTRIBUTION WIDTH 16.2 % (11.0-15.5); WHITE BLOOD COUNT 5.4 X10e3 (4.0-10.5)
[2016-10-27 05:36] LABS: DIFF IND NO
[2016-10-27 05:51] LABS: CALCIUM SERUM 8.5 mg/dL (8.4-10.2); CREATININE SERUM 0.8 mg/dL (0.6-1.4); GLOM FILT RATE Estimated 82.1 mL/min (>60); POTASSIUM 3.6 mmol/L (3.5-5.1)
== END 2016-10-27 23:57 | DRG 871 ==
LOC: CED 16:47 → CEDOF 20:29 → CICCU3 20:53 → CED 20:53 → CEDOF 20:53 → CICCU3 10-24 01:00 → C3A PCU 10-26 22:35
PROVIDERS: Emergency Medicine; Internal Medicine; Internal Medicine Cardiovascular Disease; Internal Medicine Pulmonary Disease; Physician Assistant Medical
PROC: 0BH17EZ Insertion of Endotracheal Airway into Trachea, Via Natural or Artificial Opening (ICD-10-PCS; principal; 2016-10-23)
PROC: 5A1945Z Respiratory Ventilation, 24-96 Consecutive Hours (ICD-10-PCS; 2016-10-23)
DX: A41.9 Sepsis, unspecified organism (principal); R65.21 Severe sepsis with septic shock; J96.01 Acute respiratory failure with hypoxia; J69.0 Pneumonitis due to inhalation of food and vomit; G92 Toxic encephalopathy; I50.23 Acute on chronic systolic (congestive) heart failure; R13.10 Dysphagia, unspecified; B37.49 Other urogenital candidiasis; I48.0 Paroxysmal atrial fibrillation; Z86.73 Personal history of transient ischemic attack (TIA), and cerebral infarction without residual deficits; D63.8 Anemia in other chronic diseases classified elsewhere; Z66 Do not resuscitate; G40.909 Epilepsy, unspecified, not intractable, without status epilepticus; I11.0 Hypertensive heart disease with heart failure; I25.10 Atherosclerotic heart disease of native coronary artery without angina pectoris; Z95.1 Presence of aortocoronary bypass graft; E78.5 Hyperlipidemia, unspecified; Z79.82 Long term (current) use of aspirin; I27.2 Other secondary pulmonary hypertension
CPT/HCPCS: 31500; 36415; 36600; 70450; 71010; 80048; 80053; 80076; 81003; 82553; 82803; 83605; 83690; 83735; 83880; 84100; 84484; 85025; 85610; 85730; 87040; 87070; 87086; 87205; 92610; 93005; 94002; 94003; 94760; 94761; 96374; 97163; 97166; 99291; C9113; G8978-GP; G8979-GP; G8987-GO; G8988-GO; G8989-GO; G8996-GN; G8997-GN; J0330; J1335; J1450; J1626; J1650; J1940; J1953; J2185; J2250; J2543; J3010; J3475